=== PATIENT | male | born 1945 | race Hispanic/Latino ===

== ENCOUNTER 2019-11-25 08:39 | Emergency (ER) | payer MEDICARE ==
[~2019-11-25 08:39] MED LIST: ADV250 IH; ASPI81TA40 PO; DILT360C32 PO; FURO20TA4 PO; LOSA100T58 PO
[2019-11-25] MEDS ORDERED: SODIUM CHLORIDE 0.9% 1000ML 1,000 ML IV ONE (08:40)
[2019-11-25 09:54] LABS: APPEARANCE,URINE CLEAR (CLEAR); BILIRUBIN,URINE SMALL (NEGATIVE); COLOR,URINE YELLOW (YELLOW); GLUCOSE, URINE (UA) NEGATIVE (NEGATIVE); KETONES,URINE 5 mg/dL (NEGATIVE); LEUKOCYTE ESTERASE ,URINE TRACE (NEGATIVE); NITRATE,URINE POSITIVE (NEGATIVE); OCCULT BLOOD,URINE NEGATIVE (NEGATIVE); PH,URINE 5.5 (5.0-8.0); PROTEIN,URINE TRACE mg/dL (NEGATIVE)
[2019-11-25 10:29] LABS: BACTERIA,URINE Few /HPF (None Seen); MUCUS,URINE Few LPF (None Seen); RBC,URINE 0-1 /HPF (0-1); SQUAMOUS EPITHELIAL CELL,UR Rare /HPF (0-2)
[2019-11-25 10:57] LABS: BASOPHILS % (AUTO) 1.3 % (0.0-5.0); EOSINOPHILS % (AUTO) 5.9 % (0.0-8.0); HEMATOCRIT 42.1 % (42-54); LYMPHOCYTES % (AUTO) 16.4 % (21.0-51.0); MEAN CORPUSCULAR HEMOGLOBIN 30.5 pg (27.0-33.0); MEAN CORPUSCULAR VOLUME 92.3 fL (79-99); MONOCYTES % (AUTO) 15.1 % (3.0-13.0); NEUTROPHILS % (AUTO) 60.8 % (40.0-77.0); PLATELET COUNT (AUTO) 136 K/uL (130-400); RED BLOOD CELL COUNT(AUTO) 4.56 MIL/uL (4.50-6.20); RED CELL DISTRIBUTION WIDTH 14.5 % (11.0-15.5); WHITE BLOOD COUNT (AUTO) 6.1 K/uL (4.8-10.8)
[2019-11-25 11:08] LABS: CREATININE 0.8 mg/dL (0.5-1.5); POTASSIUM 3.9 mmol/L (3.5-5.1)
[2019-11-25 11:14] LABS: ALBUMIN 3.5 g/dL (3.5-5.0); TOTAL PROTEIN, SERUM 6.7 g/dL (6.0-8.3)
[2019-11-25] MEDS ORDERED: METHYLPREDNISOLONE SOD SUCC 125MG/2ML VIAL ONE (11:40)
[2019-11-25] MEDS ORDERED: DiphenhydrAMINE HCL 50 MG/ML VIAL ONE (11:40)
[2019-11-25] MEDS ORDERED: IOHEXOL 350 MG/ML 100ML INFUS..BTL IV ONE (12:04)
[2019-11-25 12:10] LABS: INR 1.03 (0.85-1.15); PARTIAL THROMBOPLASTIN TIME 27.5 SEC (26.3-35.5); PROTHROMBIN TIME 11.1 SEC (9.6-11.6)
== END 2019-11-25 16:13 | disposition home or self-care (01) ==
LOC: EDH 08:39
DX: I95.1 Orthostatic hypotension (principal); M54.5 Low back pain; I48.20 Chronic atrial fibrillation, unspecified; I10 Essential (primary) hypertension; Z79.01 Long term (current) use of anticoagulants; Z88.0 Allergy status to penicillin; Z87.891 Personal history of nicotine dependence
CPT/HCPCS: 36415; 71046; 74174; 80053; 81001; 82550; 83880; 84484; 85025; 85610; 85730; 93005; 96361; 96374; 96375; 99285; J1200; J2930; J7030; Q9967

== ENCOUNTER 2019-12-09 11:47 | Inpatient (IN) | payer MEDICARE ==
[~2019-12-09] VITALS: Ht 177.8 cm; Wt 117.9 kg
[2019-12-09 12:33] LABS: BASOPHILS % (AUTO) 1.2 % (0.0-5.0); EOSINOPHILS % (AUTO) 2.7 % (0.0-8.0); HEMATOCRIT 41.7 % (42-54); LYMPHOCYTES % (AUTO) 14.6 % (21.0-51.0); MEAN CORPUSCULAR HEMOGLOBIN 30.6 pg (27.0-33.0); MEAN CORPUSCULAR HGB CONC 33.1 g/dL (32.0-36.0); MEAN CORPUSCULAR VOLUME 92.5 fL (79-99); MONOCYTES % (AUTO) 11.5 % (3.0-13.0); NEUTROPHILS % (AUTO) 69.3 % (40.0-77.0); PLATELET COUNT (AUTO) 156 K/uL (130-400); RED BLOOD CELL COUNT(AUTO) 4.51 MIL/uL (4.50-6.20); RED CELL DISTRIBUTION WIDTH 14.6 % (11.0-15.5); WHITE BLOOD COUNT (AUTO) 8.2 K/uL (4.8-10.8)
[2019-12-09 12:46] LABS: POTASSIUM 3.8 mmol/L (3.5-5.1)
[2019-12-09 12:48] LABS: INR 1.04 (0.85-1.15); PROTHROMBIN TIME 11.2 SEC (9.6-11.6)
[2019-12-09 12:51] LABS: ALBUMIN 3.8 g/dL (3.5-5.0); BILIRUBIN,TOTAL 1.1 mg/dL (0.2-1.0); TOTAL PROTEIN, SERUM 7.1 g/dL (6.0-8.3)
[2019-12-09] MEDS ORDERED: FUROSEMIDE 10 MG/ML 4ML VIAL ONE (12:55)
[2019-12-09 13:04] LABS: B-TYPE NATRIURETIC PEPTIDE 67 pg/mL (0-100)
[2019-12-09 13:54] LABS: APPEARANCE,URINE Clear (CLEAR); BILIRUBIN,URINE Negative (NEGATIVE); COLOR,URINE Yellow (YELLOW); GLUCOSE, URINE (UA) Negative (NEGATIVE); KETONES,URINE Negative (NEGATIVE); LEUKOCYTE ESTERASE ,URINE Negative (NEGATIVE); NITRATE,URINE Negative (NEGATIVE); OCCULT BLOOD,URINE Negative (NEGATIVE); PROTEIN,URINE Negative (NEGATIVE)
[2019-12-09] MEDS ORDERED: DIPHENHYDRAMINE HCL 25 MG CAPSULE ONE (13:54)
[2019-12-09] MEDS ORDERED: IOHEXOL-350 75 ML VIAL IV ONE (14:23)
[2019-12-09] MEDS ORDERED: ACETAMINOPHEN 325 MG TAB PO PRN ×2 (16:45)
[2019-12-09] MEDS ORDERED: ONDANSETRON HCL 4 MG/2 ML VIAL IV PRN (16:45)
[2019-12-09] MEDS ORDERED: LACTULOSE 20 GM/30 ML UDCUP PO PRN (16:45)
[2019-12-09] MEDS ORDERED: BUMETANIDE 0.25 MG/ML 10 ML VIAL IV SCH (16:45)
[2019-12-09] MEDS ORDERED: HEPARIN 25000 UNITS/250 ML D5W 250 ML IV SCH (17:15)
[2019-12-09] MEDS ORDERED: BUMETANIDE IV SCH (17:15)
[2019-12-09 20:14] LABS: BASOPHILS % (AUTO) 1.2 % (0.0-5.0); EOSINOPHILS % (AUTO) 2.9 % (0.0-8.0); HEMATOCRIT 39.4 % (42-54); LYMPHOCYTES % (AUTO) 18.8 % (21.0-51.0); MEAN CORPUSCULAR HEMOGLOBIN 30.1 pg (27.0-33.0); MEAN CORPUSCULAR HGB CONC 32.2 g/dL (32.0-36.0); MEAN CORPUSCULAR VOLUME 93.4 fL (79-99); NEUTROPHILS % (AUTO) 63.4 % (40.0-77.0); PLATELET COUNT (AUTO) 144 K/uL (130-400); RED BLOOD CELL COUNT(AUTO) 4.22 MIL/uL (4.50-6.20); RED CELL DISTRIBUTION WIDTH 14.7 % (11.0-15.5); WHITE BLOOD COUNT (AUTO) 7.3 K/uL (4.8-10.8)
[2019-12-09] MEDS ORDERED: ENOXAPARIN SODIUM 100 MG/1 ML SQ ONE (20:34)
[2019-12-09] MEDS ORDERED: ENOXAPARIN SODIUM 30 MG/0.3 ML SQ ONE (20:35)
[2019-12-09 20:42] LABS: HEMOGLOBIN A1C 5.7 % (4.0-6.0)
[2019-12-09] MEDS: FAMOTIDINE/PF 20 MG/2 ML VIAL IV SCH (21:00)
[2019-12-09 21:09] LABS: CREATINE KINASE, TOTAL 20 U/L (21-232); MYOGLOBIN 38 ng/mL (10-92); PHOSPHORUS 2.8 mg/dL (2.5-4.9); TROPONIN I < 0.04 ng/mL (0.00-0.06)
[2019-12-09 21:42] VITALS: BP 130/86
--- NOTE | 2019-12-09 21:45 | NUR ---
PT ARRIVED VIA STRETCHER WITH KILO ADAMES. PT AAOx3. PT DENIES PAIN. PT HAS CANE TO AMBULATE. BED TO LOWEST LEVEL, CALL LIGHT WITHIN REACH.
[2019-12-09 23:26] VITALS: BP 121/80
--- NOTE | 2019-12-09 23:35 | NUR ---
DR ABARCA ASSESSED PT. NEW ORDER TO STOP BUMEX AND LASIX. START HEPARIN DRIP ORDERED.
--- NOTE | 2019-12-10 00:05 | NUR ---
PT STATES HE HAS LIVING WILL AND DNR AT HOME WITH SPOUSE. WILL CALL SPOUSE IN THE MORNING TO BRING DOCUMENTS.
[2019-12-10] MEDS ORDERED: HEPARIN SODIUM 5000UNIT/ML 1ML VIAL ONE (00:12)
[2019-12-10 01:01] LABS: CREATINE KINASE, TOTAL 20 U/L (21-232); MYOGLOBIN 33 ng/mL (10-92); TROPONIN I < 0.04 ng/mL (0.00-0.06)
--- NOTE | 2019-12-10 01:39 | NUR ---
HEPARIN BOLUS GIVEN PER PROTOCOL MD ORDERED OF 9000 UNITS AND HEPARIN DRIP STARTED VERIFIED LABS AND WITNESSED ABOVE MENTION WITH ROSANGELA CALERO
[2019-12-10 03:53] VITALS: BP 140/92
[2019-12-10] MEDS ORDERED: TAMS-1 PO (05:09)
[2019-12-10] MEDS ORDERED: GABA600T10 PO (05:09)
[2019-12-10] MEDS ORDERED: RIVA20TA PO (05:09)
[2019-12-10] MEDS ORDERED: BUME0.5T4 PO (05:09)
[2019-12-10] MEDS ORDERED: GABA800T9 PO (05:09)
[2019-12-10] MEDS ORDERED: DILT120T PO (05:09)
[2019-12-10 06:56] LABS: BASOPHILS % (AUTO) 1.2 % (0.0-5.0); EOSINOPHILS % (AUTO) 3.4 % (0.0-8.0); LYMPHOCYTES % (AUTO) 21.4 % (21.0-51.0); MEAN CORPUSCULAR HEMOGLOBIN 30.7 pg (27.0-33.0); MEAN CORPUSCULAR HGB CONC 32.5 g/dL (32.0-36.0); MEAN CORPUSCULAR VOLUME 94.6 fL (79-99); MONOCYTES % (AUTO) 13.2 % (3.0-13.0); NEUTROPHILS % (AUTO) 60.3 % (40.0-77.0); PLATELET COUNT (AUTO) 143 K/uL (130-400); RED BLOOD CELL COUNT(AUTO) 4.23 MIL/uL (4.50-6.20); RED CELL DISTRIBUTION WIDTH 14.6 % (11.0-15.5); WHITE BLOOD COUNT (AUTO) 7.3 K/uL (4.8-10.8)
[2019-12-10 07:15] LABS: CREATINE KINASE, TOTAL 16 U/L (21-232); MYOGLOBIN 36 ng/mL (10-92); TROPONIN I < 0.04 ng/mL (0.00-0.06)
[2019-12-10 07:20] LABS: INR 1.07 (0.85-1.15); PROTHROMBIN TIME 11.5 SEC (9.6-11.6)
[2019-12-10 07:41] VITALS: BP 122/80
[2019-12-10 07:50] LABS: PARTIAL THROMBOPLASTIN TIME > 120.0 SEC (26.3-35.5)
[2019-12-10] MEDS: FAMOTIDINE/PF 20 MG/2 ML VIAL IV SCH ×2 (08:39→20:57)
[2019-12-10] MEDS ORDERED: PHARMACY COMMUNICATION MISC SCH (09:00)
[2019-12-10 10:53] VITALS: BP 128/86
[2019-12-10] MEDS ORDERED: GADODIAMIDE 10 MMOL/20 ML VIAL IV ONE (12:35)
--- NOTE | 2019-12-10 13:02 | NUR ---
DCP CM met with pt discussed dc plans. Pt is independent prior to admission, lives at home with spouse. Pt has a cane he uses to ambulate. Denies any other equipments/services. Feels safe to go back home, still drives, spouse able to assist with transportation and needs as necessary. DC plan to home once stable. CM to cont to follow up. Addendum: 12/10/19 at 1303 by LEONARD DE LA CRUZ LVN CM Amended: Links added.
[2019-12-10 15:19] LABS: INR 1.04 (0.85-1.15); PROTHROMBIN TIME 11.2 SEC (9.6-11.6)
[2019-12-10 15:25] LABS: PARTIAL THROMBOPLASTIN TIME > 120.0 SEC (26.3-35.5)
[2019-12-10 16:00] VITALS: BP 135/94
[2019-12-10] MEDS: ENOXAPARIN SODIUM 120 MG/0.8ML SQ SCH (18:11)
[2019-12-10 19:23] VITALS: BP 120/80
--- NOTE | 2019-12-10 20:04 | NUR ---
DR. TAPIA PAGED AWARE OF PT'S STATUS AND PATIENT CURRENT MEDICATIONS STATED HE WILL SEE PATIENT TOMORROW AM
[2019-12-10] MEDS ORDERED: GABAPENTIN 300 MG CAPSULE ONE (22:19)
--- NOTE | 2019-12-10 22:20 | NUR ---
pt verbalizes code status of DNR out of hospital DNR on file dr. alvarenga aware
--- NOTE | 2019-12-10 22:21 | NUR ---
gabapentin 900 mg given at this time as per dr. melchor
[2019-12-10 23:00] VITALS: BP 134/83
[2019-12-11 03:34] VITALS: BP 132/86
[2019-12-11 04:10] LABS: BASOPHILS % (AUTO) 1.6 % (0.0-5.0); EOSINOPHILS % (AUTO) 3.9 % (0.0-8.0); HEMATOCRIT 40.1 % (42-54); LYMPHOCYTES % (AUTO) 22.2 % (21.0-51.0); MEAN CORPUSCULAR HEMOGLOBIN 30.3 pg (27.0-33.0); MEAN CORPUSCULAR HGB CONC 32.2 g/dL (32.0-36.0); MEAN CORPUSCULAR VOLUME 94.1 fL (79-99); MONOCYTES % (AUTO) 13.9 % (3.0-13.0); NEUTROPHILS % (AUTO) 57.9 % (40.0-77.0); PLATELET COUNT (AUTO) 161 K/uL (130-400); RED BLOOD CELL COUNT(AUTO) 4.26 MIL/uL (4.50-6.20); RED CELL DISTRIBUTION WIDTH 14.7 % (11.0-15.5); WHITE BLOOD COUNT (AUTO) 6.2 K/uL (4.8-10.8)
[2019-12-11 04:37] LABS: CARBON DIOXIDE 33 mmol/L (21-32); CHLORIDE 100 mmol/L (101-111); CREATININE 0.8 mg/dL (0.5-1.5); GLOMERULAR FILTR. RATE CALC 100 mL/min (>60); GLUCOSE,RANDOM 105 mg/dL (70-105); PHOSPHORUS 3.3 mg/dL (2.5-4.9); POTASSIUM 3.9 mmol/L (3.5-5.1); SODIUM SERUM 137 mmol/L (136-145); UREA NITROGEN, BLOOD 10 mg/dL (7-18)
[2019-12-11 05:45] LABS: ERYTHROCYTE SEDIMENTATION RATE 5 MM/HR (0-20)
[2019-12-11] MEDS: ENOXAPARIN SODIUM 120 MG/0.8ML SQ SCH ×2 (06:44→18:36)
[2019-12-11 07:54] VITALS: BP 118/79
[2019-12-11] MEDS: GABAPENTIN 300 MG CAPSULE PO SCH ×2 (09:23→20:33)
[2019-12-11] MEDS: FAMOTIDINE/PF 20 MG/2 ML VIAL IV SCH ×2 (09:23→20:32)
[2019-12-11 11:41] VITALS: BP 128/88
[2019-12-11 15:37] VITALS: BP 148/78
[2019-12-11 20:18] VITALS: BP 141/77
--- NOTE | 2019-12-11 21:00 | NUR ---
PT ABLE TO AMBULATE. PITTING EDEMA +4. NO DISTRESS NOTED. ABLE TO TAKE MEDICATIONS WELL. STATES NO SOB. PAIN.
[2019-12-12] VITALS (7 sets, daily range): BP systolic 111–130; BP diastolic 63–94
[2019-12-12] MEDS: ENOXAPARIN SODIUM 120 MG/0.8ML SQ SCH ×2 (06:39→18:30)
[2019-12-12] MEDS: GABAPENTIN 300 MG CAPSULE PO SCH ×2 (12:36→21:11)
[2019-12-12] MEDS: FAMOTIDINE/PF 20 MG/2 ML VIAL IV SCH ×2 (12:37→21:10)
[2019-12-12] MEDS: BUMETANIDE 1 MG TAB PO SCH ×2 (12:49→21:11)
[2019-12-12] MEDS: MULTIVITAMIN TABLET PO SCH (12:49)
[2019-12-12] MEDS: DILTIAZEM HCL 60 MG TABLET PO SCH (12:50)
[2019-12-12] MEDS: POTASSIUM CHLORIDE 10 MEQ/TAB.SA PO SCH (12:51)
[2019-12-13 04:06] VITALS: BP 124/88
[2019-12-13 04:33] LABS: BASOPHILS % (AUTO) 1.5 % (0.0-5.0); EOSINOPHILS % (AUTO) 4.7 % (0.0-8.0); HEMATOCRIT 39.6 % (42-54); LYMPHOCYTES % (AUTO) 25.3 % (21.0-51.0); MEAN CORPUSCULAR HEMOGLOBIN 30.8 pg (27.0-33.0); MEAN CORPUSCULAR HGB CONC 33.1 g/dL (32.0-36.0); MEAN CORPUSCULAR VOLUME 93.2 fL (79-99); MONOCYTES % (AUTO) 16.2 % (3.0-13.0); NEUTROPHILS % (AUTO) 51.7 % (40.0-77.0); PLATELET COUNT (AUTO) 183 K/uL (130-400); RED BLOOD CELL COUNT(AUTO) 4.25 MIL/uL (4.50-6.20); RED CELL DISTRIBUTION WIDTH 14.5 % (11.0-15.5); WHITE BLOOD COUNT (AUTO) 5.4 K/uL (4.8-10.8)
[2019-12-13] MEDS: ENOXAPARIN SODIUM 120 MG/0.8ML SQ SCH ×2 (06:40→18:09)
[2019-12-13 08:05] VITALS: BP 132/82
[2019-12-13] MEDS: POTASSIUM CHLORIDE 10 MEQ/TAB.SA PO SCH (08:54)
[2019-12-13] MEDS: DILTIAZEM HCL 60 MG TABLET PO SCH (08:55)
[2019-12-13] MEDS: MULTIVITAMIN TABLET PO SCH (08:55)
[2019-12-13] MEDS: BUMETANIDE 1 MG TAB PO SCH ×2 (08:55→20:57)
[2019-12-13] MEDS: GABAPENTIN 300 MG CAPSULE PO SCH ×2 (08:56→20:57)
[2019-12-13] MEDS: FAMOTIDINE/PF 20 MG/2 ML VIAL IV SCH ×2 (09:07→20:57)
[2019-12-13 11:43] VITALS: BP 123/76
[2019-12-13 15:38] VITALS: BP 116/73
[2019-12-13 19:42] VITALS: BP 134/95
--- NOTE | 2019-12-13 23:00 | NUR ---
PT EDEMA TO LE HAS IMPROVED FROM 4+ PITTING TO 1+ WITH MINIMAL PITTING. TEDS IN PLACE. NO CONCERNS AT THIS TIME. NO DISTRESS NOTED. PT ABLE TO AMBULATE. POSSIBLE DC FOR THE AM.
[2019-12-13 23:35] VITALS: BP 135/74
[2019-12-14 03:51] VITALS: BP 127/89
[2019-12-14 03:53] LABS: BASOPHILS % (AUTO) 1.4 % (0.0-5.0); EOSINOPHILS % (AUTO) 6.4 % (0.0-8.0); HEMATOCRIT 40.3 % (42-54); LYMPHOCYTES % (AUTO) 27.7 % (21.0-51.0); MEAN CORPUSCULAR HEMOGLOBIN 30.9 pg (27.0-33.0); MEAN CORPUSCULAR HGB CONC 32.3 g/dL (32.0-36.0); MEAN CORPUSCULAR VOLUME 95.7 fL (79-99); MONOCYTES % (AUTO) 15.1 % (3.0-13.0); PLATELET COUNT (AUTO) 184 K/uL (130-400); RED BLOOD CELL COUNT(AUTO) 4.21 MIL/uL (4.50-6.20); RED CELL DISTRIBUTION WIDTH 14.3 % (11.0-15.5)
[2019-12-14 04:22] LABS: BILIRUBIN,TOTAL 0.7 mg/dL (0.2-1.0); POTASSIUM 3.3 mmol/L (3.5-5.1); TOTAL PROTEIN, SERUM 6.4 g/dL (6.0-8.3)
[2019-12-14] MEDS: ENOXAPARIN SODIUM 120 MG/0.8ML SQ SCH ×2 (05:02→17:32)
[2019-12-14 07:40] VITALS: BP 131/89
--- NOTE | 2019-12-14 07:45 | NUR ---
ASSESSMENT ENCOUNTERED PT SITTING UP IN CHAIR WITH FEET ELEVATED, A&OX3, CALM COOPERATIVE AND DOES NOT APPEAR TO BE IN ANY DISTRESS NOR ANY NEURO DEFICITS PRESENT. PT DENIES PAIN, SOB, NAUSEA. PT IS ABLE TO TOLERATE FOODS, FLUIDS AND MEDICATION WITH NO THROAT CLEARING OR COUGH. PT IS AMBULATORY, GAIT SLOW BUT STEADY WITH WALKER. CALL LIGHT WITHIN REACH.
[2019-12-14] MEDS: MULTIVITAMIN TABLET PO SCH (09:48)
[2019-12-14] MEDS: POTASSIUM CHLORIDE 10 MEQ/TAB.SA PO SCH (09:49)
[2019-12-14] MEDS: BUMETANIDE 1 MG TAB PO SCH ×2 (09:49→17:33)
[2019-12-14] MEDS: DILTIAZEM HCL 60 MG TABLET PO SCH (09:49)
[2019-12-14] MEDS: FAMOTIDINE/PF 20 MG/2 ML VIAL IV SCH (09:50)
[2019-12-14] MEDS: GABAPENTIN 300 MG CAPSULE PO SCH (09:50)
[2019-12-14 11:31] VITALS: BP 129/85
--- NOTE | 2019-12-14 14:32 | NUR ---
CM Note: Lovenox $24 copay CM spoke to Ronald barragan/[facility], pt's preferred pharmacy, gave quote $24/month for lovenox 1.5mg/kg. Script called in for Dr Conner. made aware of copay, agreeable w/pricing. Nurse to teach pt how to administer lovenox. Primary nurse aware. CM to cont to follow up.
[2019-12-14] MEDS ORDERED: BUME1TAB7 PO (14:37)
[2019-12-14] MEDS ORDERED: DILT-36 PO (14:37)
[2019-12-14] MEDS ORDERED: ENOX120D SQ (14:37)
[2019-12-14] MEDS ORDERED: POTA-9 PO (14:37)
--- NOTE | 2019-12-14 17:30 | NUR ---
DISCHARGE INSTRUCTIONS GIVEN, PIV REMOVED AND INTACT, DISCHARGED HOME TO FAMILY VEHICLE VIA WHEELCHAIR.
== END 2019-12-14 17:34 | disposition home or self-care (01) | DRG 300 ==
LOC: EDH 11:47 → EDHIP 16:33 → 4BH 20:24
PROVIDERS: ADMIT Internal Medicine; ATTEND Internal Medicine
DX: I82.411 Acute embolism and thrombosis of right femoral vein (principal); E87.1 Hypo-osmolality and hyponatremia; I48.19 Other persistent atrial fibrillation; D68.59 Other primary thrombophilia; J94.8 Other specified pleural conditions; I82.441 Acute embolism and thrombosis of right tibial vein; I82.432 Acute embolism and thrombosis of left popliteal vein; I10 Essential (primary) hypertension; E87.8 Other disorders of electrolyte and fluid balance, not elsewhere classified; Z96.641 Presence of right artificial hip joint; Z77.090 Contact with and (suspected) exposure to asbestos; I87.2 Venous insufficiency (chronic) (peripheral); N40.0 Benign prostatic hyperplasia without lower urinary tract symptoms; E03.9 Hypothyroidism, unspecified; E66.9 Obesity, unspecified; I27.20 Pulmonary hypertension, unspecified; R76.8 Other specified abnormal immunological findings in serum; Z68.37 Body mass index [BMI] 37.0-37.9, adult; Z98.84 Bariatric surgery status; Z87.891 Personal history of nicotine dependence; Z95.828 Presence of other vascular implants and grafts; Z79.01 Long term (current) use of anticoagulants; Z88.0 Allergy status to penicillin; Z88.8 Allergy status to other drugs, medicaments and biological substances; Z83.3 Family history of diabetes mellitus; Z82.49 Family history of ischemic heart disease and other diseases of the circulatory system
CPT/HCPCS: 36415; 71045; 71275; 78582; 80048; 80053; 81003; 81241; 82550; 83036; 83090; 83735; 83874; 83880; 84100; 84145; 84443; 84484; 85025; 85210; 85378; 85610; 85651; 85730; 86038; 86147; 86160; 86215; 93005; 93306; 93356; 93970; A9540; A9558; A9579; G0378; J1644; J1650; J1940; J3490; Q0163; Q9967

== ENCOUNTER 2020-04-26 16:43 | Emergency (ER) | payer MEDICARE ==
[~2020-04-26 16:43] MED LIST changes: -ADV250 IH; -ASPI81TA40 PO; +BUME0.5T4 PO; +BUME1TAB7 PO; +DILT-36 PO; -DILT360C32 PO; +ENOX120D SQ; -FURO20TA4 PO; +GABA600T10 PO; +GABA800T9 PO; -LOSA100T58 PO; +POTA-9 PO; +TAMS-1 PO
[2020-04-26 17:14] LABS: BASOPHILS % (AUTO) 1.2 % (0.0-5.0); EOSINOPHILS % (AUTO) 3.4 % (0.0-8.0); HEMATOCRIT 43.1 % (42-54); LYMPHOCYTES % (AUTO) 17.8 % (21.0-51.0); MEAN CORPUSCULAR HEMOGLOBIN 29.6 pg (27.0-33.0); MEAN CORPUSCULAR HGB CONC 32.9 g/dL (32.0-36.0); NEUTROPHILS % (AUTO) 62.2 % (40.0-77.0); PLATELET COUNT (AUTO) 241 K/uL (130-400); RED BLOOD CELL COUNT(AUTO) 4.79 MIL/uL (4.50-6.20); RED CELL DISTRIBUTION WIDTH 14.5 % (11.0-15.5); WHITE BLOOD COUNT (AUTO) 7.6 K/uL (4.8-10.8)
[2020-04-26 17:27] LABS: CREATININE 0.9 mg/dL (0.5-1.5)
[2020-04-26 17:29] LABS: INR 2.07 (0.85-1.15); PARTIAL THROMBOPLASTIN TIME 33.6 SEC (26.3-35.5); PROTHROMBIN TIME 21.7 SEC (9.6-11.6)
[2020-04-26 17:34] LABS: ALBUMIN 3.5 g/dL (3.5-5.0); BILIRUBIN,TOTAL 0.6 mg/dL (0.2-1.0); TOTAL PROTEIN, SERUM 7.1 g/dL (6.0-8.3)
[2020-04-26] MEDS ORDERED: ACETAMINOPHEN EXTRA STRENGTH 500 MG TABLET ONE (17:48)
[2020-04-26 18:22] LABS: APPEARANCE,URINE Clear (CLEAR); BILIRUBIN,URINE Negative (NEGATIVE); COLOR,URINE Yellow (YELLOW); GLUCOSE, URINE (UA) Negative (NEGATIVE); KETONES,URINE Negative (NEGATIVE); LEUKOCYTE ESTERASE ,URINE Trace (NEGATIVE); NITRATE,URINE Negative (NEGATIVE); OCCULT BLOOD,URINE Negative (NEGATIVE); PROTEIN,URINE Negative (NEGATIVE)
[2020-04-26 18:30] LABS: RBC,URINE 0-1 /HPF (0-1)
[2020-04-26 18:31] LABS: BACTERIA,URINE Rare /HPF (None Seen); SQUAMOUS EPITHELIAL CELL,UR Few /HPF (0-2)
[2020-04-26 18:32] LABS: MUCUS,URINE Rare LPF (None Seen)
== END 2020-04-26 19:27 | disposition home or self-care (01) ==
LOC: EDH 16:43
DX: S81.801A Unspecified open wound, right lower leg, initial encounter (principal); L97.219 Non-pressure chronic ulcer of right calf with unspecified severity; I10 Essential (primary) hypertension; Z91.041 Radiographic dye allergy status; Z88.0 Allergy status to penicillin; Z98.890 Other specified postprocedural states; X58.XXXA Exposure to other specified factors, initial encounter; Y93.89 Activity, other specified; Y92.89 Other specified places as the place of occurrence of the external cause; Y99.8 Other external cause status
CPT/HCPCS: 36415; 80053; 81001; 82550; 83605; 83880; 84484; 85025; 85610; 85730; 93005; 93970; 93971

== ENCOUNTER → 2022-07-24 | Outpatient (CLI) | payer MEDICARE, OTHER ==
[~2022-07-24] MED LIST changes: +POTA-200 PO; -POTA-9 PO
== END | disposition home or self-care (01) ==
LOC: RAH 13:51
DX: I48.0 Paroxysmal atrial fibrillation (principal); G63 Polyneuropathy in diseases classified elsewhere; E66.01 Morbid (severe) obesity due to excess calories
CPT/HCPCS: 73620

== ENCOUNTER 2022-09-11 01:12 | Emergency (ER) | payer OTHER ==
[~2022-09-11] VITALS: Ht 177.8 cm; Wt 117.9 kg
[2022-09-11 01:26] LABS: BASOPHILS % (AUTO) 1.8 % (0.0-5.0); EOSINOPHILS % (AUTO) 8.5 % (0.0-8.0); LYMPHOCYTES % (AUTO) 24.7 % (21.0-51.0); MEAN CORPUSCULAR HGB CONC 31.4 g/dL (32.0-36.0); MEAN CORPUSCULAR VOLUME 89.1 fL (79-99); MONOCYTES % (AUTO) 11.4 % (3.0-13.0); NEUTROPHILS % (AUTO) 53.2 % (40.0-77.0); PLATELET COUNT (AUTO) 217 K/uL (130-400); RED BLOOD CELL COUNT(AUTO) 4.04 MIL/uL (4.50-6.20); RED CELL DISTRIBUTION WIDTH 15.6 % (11.0-15.5); WHITE BLOOD COUNT (AUTO) 5.5 K/uL (4.8-10.8)
[2022-09-11 01:44] LABS: ALBUMIN 3.1 g/dL (3.5-5.0); CREATININE 0.8 mg/dL (0.5-1.5); TOTAL PROTEIN, SERUM 5.9 g/dL (6.0-8.3)
[2022-09-11 02:04] LABS: INR 2.75 (0.85-1.15); PROTHROMBIN TIME 28.3 SEC (9.6-11.6)
[2022-09-11 02:22] LABS: PARTIAL THROMBOPLASTIN TIME 36.2 SEC (26.3-35.5)
[2022-09-11] MEDS ORDERED: POTASSIUM CHLORIDE 10MEQ/100ML 100 ML IV ONE (02:44)
[2022-09-11] MEDS ORDERED: LISI5TAB21 PO (04:16)
[2022-09-11] MEDS ORDERED: GABA800T9 PO (04:17)
[2022-09-11 04:18] LABS: APPEARANCE,URINE CLEAR (CLEAR); BILIRUBIN,URINE NEGATIVE (NEGATIVE); COLOR,URINE YELLOW (YELLOW); GLUCOSE, URINE (UA) NEGATIVE (NEGATIVE); KETONES,URINE NEGATIVE (NEGATIVE); LEUKOCYTE ESTERASE ,URINE NEGATIVE Leu/uL (NEGATIVE); NITRATE,URINE NEGATIVE (NEGATIVE); OCCULT BLOOD,URINE NEGATIVE (NEGATIVE); PH,URINE 5.5 (5.0-8.0); PROTEIN,URINE 20 mg/dL (NEGATIVE); UROBILINOGEN,URINE 0.2 mg/dL (0.2-1.0)
[2022-09-11] MEDS ORDERED: WARF-57 PO (04:18)
[2022-09-11] MEDS ORDERED: ONDANSETRON 4MG INJ IVP ONE (05:30)
[2022-09-11] MEDS ORDERED: MORPHINE 4 MG SYG IVP ONE (05:30)
[2022-09-11 06:13] VITALS: BP 129/89
== END 2022-09-11 06:39 | disposition short-term general hospital (02) ==
LOC: EDH 01:12
DX: S14.109A Unspecified injury at unspecified level of cervical spinal cord, initial encounter (principal); I48.91 Unspecified atrial fibrillation; I11.0 Hypertensive heart disease with heart failure; I50.9 Heart failure, unspecified; Z20.822 Contact with and (suspected) exposure to COVID-19; Z88.0 Allergy status to penicillin; Z88.8 Allergy status to other drugs, medicaments and biological substances; Z79.01 Long term (current) use of anticoagulants; I95.9 Hypotension, unspecified; Z79.899 Other long term (current) drug therapy; W18.30XA Fall on same level, unspecified, initial encounter; Y93.89 Activity, other specified; Y92.89 Other specified places as the place of occurrence of the external cause; Y99.8 Other external cause status
CPT/HCPCS: 99285; 80053; 85025; 85610; 85730; 81003; 36415; 87635; 70450; 72125; 72131; 72128; 96374; 96361; 96375; 93005; C9803; J2405; J2270

== ENCOUNTER 2023-04-26 17:17 | Emergency (ER) | payer OTHER ==
[~2023-04-26] VITALS: Ht 180.3 cm; Wt 99.8 kg
[~2023-04-26 17:17] MED LIST changes: +BACL10TA PO; -BUME0.5T4 PO; -BUME1TAB7 PO; +CALC-190 PO; +CYAN100T45 PO; +DOCU283E6 RC; -ENOX120D SQ; +FOLI1 PO; +FURO20TA4 PO; -GABA600T10 PO; -GABA800T9 PO; +KETO10DR3 OP; +LISI5TAB21 PO; +LOPE2TAB26 PO; +MAGN400T40 PO; +MULTIVITAMIN PO; -POTA-200 PO; +POTA-364 PO; +PSYL1PAC11 PO; +THIA100T78 PO; +WARF-57 PO
[2023-04-26 18:21] LABS: ADD UA MICROSCOPIC YES; APPEARANCE,URINE CLOUDY (CLEAR); BILIRUBIN,URINE NEGATIVE (NEGATIVE); COLOR,URINE LIGHT-YELLOW (YELLOW); GLUCOSE, URINE (UA) NEGATIVE (NEGATIVE); KETONES,URINE NEGATIVE (NEGATIVE); LEUKOCYTE ESTERASE ,URINE 500 Leu/uL (NEGATIVE); NITRATE,URINE 2+ (NEGATIVE); PROTEIN,URINE NEGATIVE (NEGATIVE); UROBILINOGEN,URINE 0.2 mg/dL (0.2-1.0)
[2023-04-26 18:24] LABS: BACTERIA,URINE RARE /HPF (None Seen); MUCUS,URINE RARE LPF (None Seen); OTHER CASTS, URINE 1 /LPF (None Seen); WBC,URINE TNTC /HPF (0-1)
[2023-04-26 19:21] VITALS: BP 112/69; PULSE 60; RESP 16; O2SAT 97
[2023-04-26 19:30] LABS: APPEARANCE,URINE CLEAR (CLEAR); BILIRUBIN,URINE NEGATIVE (NEGATIVE); COLOR,URINE LIGHT-YELLOW (YELLOW); GLUCOSE, URINE (UA) NEGATIVE (NEGATIVE); KETONES,URINE NEGATIVE (NEGATIVE); LEUKOCYTE ESTERASE ,URINE 500 Leu/uL (NEGATIVE); NITRATE,URINE NEGATIVE (NEGATIVE); OCCULT BLOOD,URINE SMALL (NEGATIVE); PH,URINE 5.5 (5.0-8.0); PROTEIN,URINE NEGATIVE (NEGATIVE); UROBILINOGEN,URINE 0.2 mg/dL (0.2-1.0)
[2023-04-26 19:34] LABS: ADD UA MICROSCOPIC YES
[2023-04-26 19:35] LABS: BACTERIA,URINE RARE /HPF (None Seen); MUCUS,URINE RARE LPF (None Seen); SQUAMOUS EPITHELIAL CELL,UR RARE /HPF (0-2); WBC,URINE 51-100 /HPF (0-1)
== END 2023-04-26 20:10 | disposition home or self-care (01) ==
LOC: EDH 17:17
DX: N39.0 Urinary tract infection, site not specified (principal); I48.91 Unspecified atrial fibrillation; Z79.899 Other long term (current) drug therapy; Z98.890 Other specified postprocedural states; Z90.49 Acquired absence of other specified parts of digestive tract; Z88.0 Allergy status to penicillin; Z91.040 Latex allergy status
CPT/HCPCS: 81001; 87077; 87088; 87186

== ENCOUNTER 2023-05-04 20:26 | Inpatient (IN) | payer OTHER ==
[~2023-05-04] VITALS: Ht 180.3 cm; Wt 100.3 kg
[2023-05-04 20:52] LABS: HEMATOCRIT 28.9 % (42-54); MEAN CORPUSCULAR HEMOGLOBIN 29.2 pg (27.0-33.0); MEAN CORPUSCULAR HGB CONC 32.5 g/dL (32.0-36.0); MEAN CORPUSCULAR VOLUME 89.8 fL (79-99); PLATELET COUNT (AUTO) 190 K/uL (130-400); RED BLOOD CELL COUNT(AUTO) 3.22 MIL/uL (4.50-6.20); RED CELL DISTRIBUTION WIDTH 14.6 % (11.0-15.5); WHITE BLOOD COUNT (AUTO) 8.1 K/uL (4.8-10.8)
[2023-05-04] MEDS ORDERED: CEFEPIME HCL 2 GM VIAL IVPB STA (20:56)
[2023-05-04] MEDS ORDERED: VANCOMYCIN KIT 1 GM/250 ML IV.KIT IV ONE (21:00)
[2023-05-04 21:26] LABS: EOSINOPHILS % (MANUAL) 10 % (1-6); LYMPHOCYTES % (MANUAL) 14 % (22-44); MAN.DIFF COMMENT-IMPRESSION MANUAL DIFFERENTIAL; MONOCYTES % (MANUAL) 5 % (2-9); SEGMENTED NEUTROPHILS % 71 % (40-70); TOTAL CELLS COUNTED 100; WBC MORPHOLOGY SMUDGE CELLS 1+
[2023-05-04 21:27] LABS: PLATELET MORPHOLOGY COMMENT ADEQUATE
[2023-05-04 21:41] LABS: ALBUMIN 1.9 g/dL (3.5-5.0); BILIRUBIN,TOTAL 0.2 mg/dL (0.2-1.0); CREATININE 0.5 mg/dL (0.5-1.5); TOTAL PROTEIN, SERUM 3.7 g/dL (6.0-8.3)
[2023-05-04 21:42] LABS: POTASSIUM 2.7 mmol/L (3.5-5.1)
[2023-05-04 21:51] LABS: APPEARANCE,URINE TURBID (CLEAR); BILIRUBIN,URINE NEGATIVE (NEGATIVE); COLOR,URINE YELLOW (YELLOW); GLUCOSE, URINE (UA) NEGATIVE (NEGATIVE); KETONES,URINE NEGATIVE (NEGATIVE); LEUKOCYTE ESTERASE ,URINE 500 Leu/uL (NEGATIVE); NITRATE,URINE NEGATIVE (NEGATIVE); OCCULT BLOOD,URINE LARGE (NEGATIVE); PH,URINE 5.5 (5.0-8.0); PROTEIN,URINE 100 mg/dL (NEGATIVE)
[2023-05-04 21:52] LABS: ADD UA MICROSCOPIC YES
[2023-05-04 21:53] LABS: BACTERIA,URINE MOD /HPF (None Seen); MUCUS,URINE MOD LPF (None Seen); RBC,URINE TNTC /HPF (0-1); WBC CLUMP MANY /HPF (0-1); WBC,URINE TNTC /HPF (0-1); YEAST,URINE BUDDING RARE /HPF (None Seen)
[2023-05-04] MEDS ORDERED: POTASSIUM CHLORIDE 20MEQ/100ML 100 ML IV ONE (22:33)
[2023-05-04] MEDS ORDERED: MAGNESIUM 2GM PREMIX 50ML 50 ML IV SCH (23:00)
[2023-05-04] MEDS ORDERED: POTASSIUM BICARB/CIT AC 25 MEQ TABLET.EFF PO ONE (23:00)
[2023-05-04] MEDS ORDERED: POTASSIUM CHLORIDE 20MEQ/100ML 100 ML IV SCH (23:00)
[2023-05-05] MEDS ORDERED: POTASSIUM CHLORIDE 20MEQ/100ML 100 ML IV PRN (01:30)
[2023-05-05] MEDS ORDERED: ONDANSETRON 4MG INJ IV PRN (01:30)
[2023-05-05] MEDS: CEFEPIME HCL 1 GM VIAL IVPB SCH ×3 (01:30→17:28)
[2023-05-05] MEDS: CACL 1GM SYG IVP SCH ×2 (02:00→08:11)
[2023-05-05] MEDS ORDERED: 0.9%NACL 100ML IV ONE (02:00)
[2023-05-05] MEDS: 0.9%NACL 1000ML 1,000 ML IV SCH ×2 (03:15→17:31)
[2023-05-05 07:56] LABS: BASOPHILS # (AUTO) 0.11 K/uL (0.00-0.20); BASOPHILS % (AUTO) 1.1 % (0.0-5.0); EOSINOPHILS # (AUTO) 0.82 K/uL (0.00-0.70); EOSINOPHILS % (AUTO) 8.2 % (0.0-8.0); HEMATOCRIT 39.9 % (42-54); IMMATURE GRANULOCYTE ABSOLUTE 0.09 K/uL (0-1); LYMPHOCYTES # (AUTO) 1.3 K/uL (1.0-4.8); LYMPHOCYTES % (AUTO) 13.4 % (21.0-51.0); MEAN CORPUSCULAR HEMOGLOBIN 29.9 pg (27.0-33.0); MEAN CORPUSCULAR HGB CONC 33.6 g/dL (32.0-36.0); MEAN CORPUSCULAR VOLUME 89.1 fL (79-99); MONOCYTES # (AUTO) 0.9 K/uL (0.1-1.0); MONOCYTES % (AUTO) 9.2 % (3.0-13.0); NEUTROPHILS # (AUTO) 6.8 K/uL (1.8-7.7); NEUTROPHILS % (AUTO) 67.2 % (40.0-77.0); PLATELET COUNT (AUTO) 218 K/uL (130-400); RED BLOOD CELL COUNT(AUTO) 4.48 MIL/uL (4.50-6.20); RED CELL DISTRIBUTION WIDTH 14.6 % (11.0-15.5)
[2023-05-05 08:00] VITALS: BP 119/69; PULSE 64; RESP 17
[2023-05-05 08:17] LABS: ALBUMIN 2.7 g/dL (3.5-5.0); BILIRUBIN,TOTAL 0.7 mg/dL (0.2-1.0); CREATININE 0.6 mg/dL (0.5-1.5); POTASSIUM 4.2 mmol/L (3.5-5.1); THYROID STIMULATING HORMONE 2.93 uIU/mL (0.36-3.74)
[2023-05-05] MEDS: FAMOTIDINE 20MG VIAL IV SCH ×2 (08:37→20:48)
[2023-05-05] MEDS ORDERED: TAMSULOSIN HCL 0.4 MG CAP.ER.24H PO ONE (09:30)
[2023-05-05 12:00] VITALS: BP 102/61; PULSE 80; RESP 17
[2023-05-05] MEDS ORDERED: BACLOFEN 10 MG TABLET PO PRN (12:00)
[2023-05-05] MEDS ORDERED: KETOTIFEN FUMARATE OP SCH (12:00)
[2023-05-05] MEDS ORDERED: DOCUSATE SODIUM 283 MG PR PRN (12:30)
[2023-05-05 13:36] LABS: PARTIAL THROMBOPLASTIN TIME 64.6 SEC (26.3-35.5)
[2023-05-05 13:46] LABS: INR > 8.00 (0.85-1.15); PROTHROMBIN TIME 85.3 SEC (9.6-11.6)
[2023-05-05 15:53] VITALS: BP 124/71; PULSE 69; RESP 17
[2023-05-05 20:00] VITALS: BP 99/60; PULSE 77; RESP 17; O2SAT 97
[2023-05-05] MEDS: BACLOFEN 10 MG TABLET PO PRN (20:48)
[2023-05-05] MEDS: CA 600MG+VIT D 400 UNIT TAB 1 TAB TABLET PO SCH (20:48)
[2023-05-05] MEDS ORDERED: MULTIVITAMIN PO SCH (21:00)
[2023-05-05] MEDS ORDERED: PHYTONADIONE 10 MG/1 ML AMP SQ ONE (23:30)
[2023-05-06] VITALS (8 sets, daily range): BP systolic 97–124; BP diastolic 67–87; PULSE 60–81; RESP 16–20; O2SAT 96
[2023-05-06] MEDS: CEFEPIME HCL 1 GM VIAL IVPB SCH ×3 (00:38→18:33)
[2023-05-06 04:57] LABS: HEMATOCRIT 38.5 % (42-54); MEAN CORPUSCULAR HEMOGLOBIN 28.6 pg (27.0-33.0); MEAN CORPUSCULAR HGB CONC 31.7 g/dL (32.0-36.0); MEAN CORPUSCULAR VOLUME 90.4 fL (79-99); RED BLOOD CELL COUNT(AUTO) 4.26 MIL/uL (4.50-6.20); RED CELL DISTRIBUTION WIDTH 14.9 % (11.0-15.5); WHITE BLOOD COUNT (AUTO) 7.4 K/uL (4.8-10.8)
[2023-05-06 05:23] LABS: INR 5.49 (0.85-1.15); PROTHROMBIN TIME 54.7 SEC (9.6-11.6)
[2023-05-06 05:36] LABS: ALBUMIN 2.5 g/dL (3.5-5.0); BILIRUBIN,TOTAL 0.7 mg/dL (0.2-1.0); CREATININE 0.7 mg/dL (0.5-1.5); MAGNESIUM 1.7 mg/dL (1.80-2.40); POTASSIUM 3.8 mmol/L (3.5-5.1); TOTAL PROTEIN, SERUM 5.5 g/dL (6.0-8.3)
[2023-05-06] MEDS: MAGNESIUM 2GM PREMIX 50ML 50 ML IV PRN (05:42)
[2023-05-06] MEDS ORDERED: NON-FORMULARY MEDICATION 1 EACH (Magnesium Oxide (Magnesium) 400 MG) PO SCH (09:00)
[2023-05-06] MEDS ORDERED: LOPERAMIDE HCL 2 MG PO SCH (09:00)
[2023-05-06] MEDS ORDERED: WARFARIN SODIUM 5 MG TAB PO SCH (09:00)
[2023-05-06] MEDS: [UNRECOGNIZED DRUG - OTHER] PO SCH (09:00)
[2023-05-06] MEDS: PSYLLIUM HUSK 3.4 GM PO SCH (09:00)
[2023-05-06] MEDS ORDERED: TAMSULOSIN HCL 0.4 MG CAP.ER.24H PO SCH (09:00)
[2023-05-06] MEDS: FAMOTIDINE 20MG VIAL IV SCH ×2 (09:26→20:30)
[2023-05-06] MEDS: MAGNESIUM OXIDE 400 MG TABLET PO SCH (09:26)
[2023-05-06] MEDS: KCL 20 MEQ ERTAB PO SCH (09:26)
[2023-05-06] MEDS: CA 600MG+VIT D 400 UNIT TAB 1 TAB TABLET PO SCH ×2 (09:27→20:30)
[2023-05-06] MEDS: CYANOCOBALAMIN (VITAMIN B-12) 100 MCG TABLET PO SCH (09:27)
[2023-05-06] MEDS: DILTIAZEM 120MG SR CAP PO SCH (09:27)
[2023-05-06] MEDS: MULTIVITAMIN TABLET PO SCH (09:27)
[2023-05-06] MEDS: FOLIC ACID 1 MG TABLET PO SCH (09:27)
[2023-05-06] MEDS: THIAMINE HCL 100 MG TABLET PO SCH (09:27)
[2023-05-06] MEDS: FUROSEMIDE 20 MG TABLET PO SCH (09:28)
[2023-05-06] MEDS: TAMSULOSIN HCL 0.4 MG CAP.ER.24H PO SCH (09:28)
[2023-05-06] MEDS: LISINOPRIL 5 MG TABLET PO SCH (09:34)
[2023-05-06] MEDS: 0.9%NACL 1000ML 1,000 ML IV SCH ×2 (09:41→18:34)
[2023-05-07] VITALS (8 sets, daily range): BP systolic 88–127; BP diastolic 55–84; PULSE 64–84; RESP 18; O2SAT 97
[2023-05-07] MEDS: CEFEPIME HCL 1 GM VIAL IVPB SCH ×3 (01:49→17:10)
[2023-05-07 06:14] LABS: HEMATOCRIT 37.1 % (42-54); MEAN CORPUSCULAR HEMOGLOBIN 29.2 pg (27.0-33.0); MEAN CORPUSCULAR HGB CONC 32.3 g/dL (32.0-36.0); MEAN CORPUSCULAR VOLUME 90.3 fL (79-99); RED BLOOD CELL COUNT(AUTO) 4.11 MIL/uL (4.50-6.20); WHITE BLOOD COUNT (AUTO) 8.8 K/uL (4.8-10.8)
[2023-05-07 06:18] LABS: INR 1.35 (0.85-1.15); PROTHROMBIN TIME 15.4 SEC (9.6-11.6)
[2023-05-07 06:39] LABS: ALBUMIN 2.4 g/dL (3.5-5.0); BILIRUBIN,TOTAL 0.7 mg/dL (0.2-1.0); CREATININE 0.6 mg/dL (0.5-1.5); MAGNESIUM 1.8 mg/dL (1.80-2.40); POTASSIUM 3.5 mmol/L (3.5-5.1); TOTAL PROTEIN, SERUM 5.4 g/dL (6.0-8.3)
[2023-05-07] MEDS: 0.9%NACL 1000ML 1,000 ML IV SCH ×2 (06:50→20:10)
[2023-05-07] MEDS: PSYLLIUM HUSK 3.4 GM PO SCH (09:00)
[2023-05-07] MEDS: [UNRECOGNIZED DRUG - OTHER] PO SCH (09:00)
[2023-05-07] MEDS: FOLIC ACID 1 MG TABLET PO SCH (09:56)
[2023-05-07] MEDS: CYANOCOBALAMIN (VITAMIN B-12) 100 MCG TABLET PO SCH (09:56)
[2023-05-07] MEDS: LISINOPRIL 5 MG TABLET PO SCH (09:56)
[2023-05-07] MEDS: TAMSULOSIN HCL 0.4 MG CAP.ER.24H PO SCH (09:56)
[2023-05-07] MEDS: MULTIVITAMIN TABLET PO SCH (09:56)
[2023-05-07] MEDS: THIAMINE HCL 100 MG TABLET PO SCH (09:56)
[2023-05-07] MEDS: FAMOTIDINE 20MG VIAL IV SCH ×3 (09:56→21:20)
[2023-05-07] MEDS: MAGNESIUM OXIDE 400 MG TABLET PO SCH (09:56)
[2023-05-07] MEDS: CA 600MG+VIT D 400 UNIT TAB 1 TAB TABLET PO SCH ×3 (09:56→21:20)
[2023-05-07] MEDS: KCL 20 MEQ ERTAB PO SCH (09:57)
[2023-05-07] MEDS: FUROSEMIDE 20 MG TABLET PO SCH (09:57)
[2023-05-07] MEDS: DILTIAZEM 120MG SR CAP PO SCH (09:57)
[2023-05-07] MEDS ORDERED: WARFARIN SODIUM 1 MG TAB PO SCH ×2 (12:30→16:00)
[2023-05-07] MEDS ORDERED: PHARMACY COMMUNICATION MISC SCH (13:00)
[2023-05-07] MEDS: ENOXAPARIN SODIUM 100 MG/1 ML SQ SCH (13:36)
[2023-05-07] MEDS: WARFARIN SODIUM 1 MG TAB PO SCH (20:45)
[2023-05-07] MEDS: ACETAMINOPHEN 325 MG TAB PO PRN (20:51)
[2023-05-08] VITALS (9 sets, daily range): BP systolic 102–115; BP diastolic 59–73; PULSE 71–89; RESP 17–19; TEMP 98.6; O2SAT 97–98
[2023-05-08] MEDS: ENOXAPARIN SODIUM 100 MG/1 ML SQ SCH ×2 (00:59→13:24)
[2023-05-08] MEDS: CEFEPIME HCL 1 GM VIAL IVPB SCH ×3 (00:59→16:53)
[2023-05-08 06:06] LABS: HEMATOCRIT 39.3 % (42-54); MEAN CORPUSCULAR HEMOGLOBIN 29.1 pg (27.0-33.0); MEAN CORPUSCULAR HGB CONC 31.6 g/dL (32.0-36.0); MEAN CORPUSCULAR VOLUME 92.3 fL (79-99); RED BLOOD CELL COUNT(AUTO) 4.26 MIL/uL (4.50-6.20); RED CELL DISTRIBUTION WIDTH 15.1 % (11.0-15.5); WHITE BLOOD COUNT (AUTO) 6.3 K/uL (4.8-10.8)
[2023-05-08 06:19] LABS: INR 1.09 (0.85-1.15); PROTHROMBIN TIME 12.6 SEC (9.6-11.6)
[2023-05-08 06:20] LABS: PARTIAL THROMBOPLASTIN TIME 41.8 SEC (26.3-35.5)
[2023-05-08 06:21] LABS: ALBUMIN 2.4 g/dL (3.5-5.0); BILIRUBIN,TOTAL 0.8 mg/dL (0.2-1.0); CREATININE 0.7 mg/dL (0.5-1.5); MAGNESIUM 1.7 mg/dL (1.80-2.40); POTASSIUM 3.7 mmol/L (3.5-5.1); TOTAL PROTEIN, SERUM 5.7 g/dL (6.0-8.3)
[2023-05-08] MEDS: PSYLLIUM HUSK 3.4 GM PO SCH (09:00)
[2023-05-08] MEDS: [UNRECOGNIZED DRUG - OTHER] PO SCH (09:00)
[2023-05-08] MEDS: 0.9%NACL 1000ML 1,000 ML IV SCH ×2 (09:30→22:50)
[2023-05-08] MEDS: DILTIAZEM 120MG SR CAP PO SCH (09:47)
[2023-05-08] MEDS: LISINOPRIL 5 MG TABLET PO SCH (09:47)
[2023-05-08] MEDS: TAMSULOSIN HCL 0.4 MG CAP.ER.24H PO SCH (09:47)
[2023-05-08] MEDS: THIAMINE HCL 100 MG TABLET PO SCH (09:47)
[2023-05-08] MEDS: KCL 20 MEQ ERTAB PO SCH (09:48)
[2023-05-08] MEDS: FUROSEMIDE 20 MG TABLET PO SCH (09:48)
[2023-05-08] MEDS: FOLIC ACID 1 MG TABLET PO SCH (09:48)
[2023-05-08] MEDS: MAGNESIUM OXIDE 400 MG TABLET PO SCH (09:48)
[2023-05-08] MEDS: MULTIVITAMIN TABLET PO SCH (09:48)
[2023-05-08] MEDS: CA 600MG+VIT D 400 UNIT TAB 1 TAB TABLET PO SCH ×2 (09:49→21:31)
[2023-05-08] MEDS: FAMOTIDINE 20MG VIAL IV SCH ×2 (09:49→21:30)
[2023-05-08] MEDS: ACETAMINOPHEN 325 MG TAB PO PRN ×2 (09:49→18:24)
[2023-05-08] MEDS: CYANOCOBALAMIN (VITAMIN B-12) 100 MCG TABLET PO SCH (09:49)
[2023-05-08] MEDS: MAGNESIUM 2GM PREMIX 50ML 50 ML IV PRN (18:27)
[2023-05-08] MEDS: WARFARIN SODIUM 1 MG TAB PO SCH (21:31)
[2023-05-09] VITALS (8 sets, daily range): BP systolic 108–119; BP diastolic 61–81; PULSE 76–91; RESP 16–19; O2SAT 96–98
[2023-05-09] MEDS: ENOXAPARIN SODIUM 100 MG/1 ML SQ SCH ×2 (01:24→13:38)
[2023-05-09] MEDS: CEFEPIME HCL 1 GM VIAL IVPB SCH ×3 (01:24→18:20)
[2023-05-09 05:33] LABS: BASOPHILS # (AUTO) 0.08 K/uL (0.00-0.20); BASOPHILS % (AUTO) 1.3 % (0.0-5.0); EOSINOPHILS # (AUTO) 0.15 K/uL (0.00-0.70); EOSINOPHILS % (AUTO) 2.4 % (0.0-8.0); HEMATOCRIT 37.9 % (42-54); IMMATURE GRANULOCYTE ABSOLUTE 0.06 K/uL (0-1); LYMPHOCYTES # (AUTO) 1.1 K/uL (1.0-4.8); LYMPHOCYTES % (AUTO) 17.2 % (21.0-51.0); MEAN CORPUSCULAR HEMOGLOBIN 29.1 pg (27.0-33.0); MEAN CORPUSCULAR HGB CONC 32.5 g/dL (32.0-36.0); MEAN CORPUSCULAR VOLUME 89.8 fL (79-99); MONOCYTES # (AUTO) 1.2 K/uL (0.1-1.0); NEUTROPHILS # (AUTO) 3.6 K/uL (1.8-7.7); NEUTROPHILS % (AUTO) 58.1 % (40.0-77.0); PLATELET COUNT (AUTO) 125 K/uL (130-400); RED BLOOD CELL COUNT(AUTO) 4.22 MIL/uL (4.50-6.20); RED CELL DISTRIBUTION WIDTH 15.3 % (11.0-15.5); WHITE BLOOD COUNT (AUTO) 6.2 K/uL (4.8-10.8)
[2023-05-09 05:44] LABS: INR 1.07 (0.85-1.15); PROTHROMBIN TIME 12.4 SEC (9.6-11.6)
[2023-05-09 05:48] LABS: ALBUMIN 2.5 g/dL (3.5-5.0); ASPARTATE AMINOTRANSFERASE 15 U/L (10-37); BILIRUBIN,TOTAL 0.5 mg/dL (0.2-1.0); CARBON DIOXIDE 29 mmol/L (21-32); CHLORIDE 102 mmol/L (101-111); CREATININE 0.7 mg/dL (0.5-1.5); GLOMERULAR FILTR. RATE CALC 94 mL/min (>90); GLUCOSE,RANDOM 94 mg/dL (70-105); POTASSIUM 3.3 mmol/L (3.5-5.1); SODIUM SERUM 134 mmol/L (136-145); TOTAL PROTEIN, SERUM 5.7 g/dL (6.0-8.3); UREA NITROGEN, BLOOD 8 mg/dL (7-18)
[2023-05-09 05:49] LABS: ALANINE AMINOTRANSFERASE < 6 U/L (12-78)
[2023-05-09] MEDS: PSYLLIUM HUSK 3.4 GM PO SCH (09:00)
[2023-05-09] MEDS: [UNRECOGNIZED DRUG - OTHER] PO SCH (09:00)
[2023-05-09] MEDS: FAMOTIDINE 20MG VIAL IV SCH ×2 (09:39→20:29)
[2023-05-09] MEDS: MAGNESIUM OXIDE 400 MG TABLET PO SCH (09:39)
[2023-05-09] MEDS: FOLIC ACID 1 MG TABLET PO SCH (09:39)
[2023-05-09] MEDS: CA 600MG+VIT D 400 UNIT TAB 1 TAB TABLET PO SCH ×2 (09:39→20:29)
[2023-05-09] MEDS: THIAMINE HCL 100 MG TABLET PO SCH (09:39)
[2023-05-09] MEDS: LISINOPRIL 5 MG TABLET PO SCH (09:40)
[2023-05-09] MEDS: MULTIVITAMIN TABLET PO SCH (09:41)
[2023-05-09] MEDS: CYANOCOBALAMIN (VITAMIN B-12) 100 MCG TABLET PO SCH (09:41)
[2023-05-09] MEDS: FUROSEMIDE 20 MG TABLET PO SCH (09:41)
[2023-05-09] MEDS: TAMSULOSIN HCL 0.4 MG CAP.ER.24H PO SCH (09:41)
[2023-05-09] MEDS: KCL 20 MEQ ERTAB PO SCH (09:41)
[2023-05-09] MEDS: DILTIAZEM 120MG SR CAP PO SCH (09:42)
[2023-05-09] MEDS: 0.9%NACL 1000ML 1,000 ML IV SCH (13:38)
[2023-05-09] MEDS: WARFARIN SODIUM 5 MG TAB PO SCH (18:20)
[2023-05-09] MEDS: ACETAMINOPHEN 325 MG TAB PO PRN (20:33)
[2023-05-10] MEDS: ENOXAPARIN SODIUM 100 MG/1 ML SQ SCH ×2 (01:15→12:56)
[2023-05-10] MEDS: CEFEPIME HCL 1 GM VIAL IVPB SCH ×3 (01:24→17:34)
[2023-05-10] MEDS: 0.9%NACL 1000ML 1,000 ML IV SCH ×3 (01:25→20:04)
[2023-05-10 03:54] LABS: BASOPHILS # (AUTO) 0.06 K/uL (0.00-0.20); BASOPHILS % (AUTO) 1.2 % (0.0-5.0); EOSINOPHILS # (AUTO) 0.26 K/uL (0.00-0.70); EOSINOPHILS % (AUTO) 5.2 % (0.0-8.0); HEMATOCRIT 35.1 % (42-54); IMMATURE GRANULOCYTE ABSOLUTE 0.05 K/uL (0-1); LYMPHOCYTES # (AUTO) 1.2 K/uL (1.0-4.8); MEAN CORPUSCULAR HEMOGLOBIN 29.2 pg (27.0-33.0); MEAN CORPUSCULAR HGB CONC 32.5 g/dL (32.0-36.0); MEAN CORPUSCULAR VOLUME 89.8 fL (79-99); MONOCYTES # (AUTO) 0.9 K/uL (0.1-1.0); MONOCYTES % (AUTO) 18.2 % (3.0-13.0); NEUTROPHILS # (AUTO) 2.5 K/uL (1.8-7.7); NEUTROPHILS % (AUTO) 50.4 % (40.0-77.0); PLATELET COUNT (AUTO) 135 K/uL (130-400); RED BLOOD CELL COUNT(AUTO) 3.91 MIL/uL (4.50-6.20); RED CELL DISTRIBUTION WIDTH 15.2 % (11.0-15.5)
[2023-05-10 04:07] LABS: INR 1.03 (0.85-1.15); PROTHROMBIN TIME 11.9 SEC (9.6-11.6)
[2023-05-10 04:11] LABS: CREATININE 0.6 mg/dL (0.5-1.5); POTASSIUM 3.1 mmol/L (3.5-5.1)
[2023-05-10 04:45] VITALS: BP 115/70; PULSE 70; RESP 18
[2023-05-10 08:00] VITALS: BP 118/72; PULSE 72; RESP 22; O2SAT 98
[2023-05-10] MEDS: PSYLLIUM HUSK 3.4 GM PO SCH (09:00)
[2023-05-10] MEDS: [UNRECOGNIZED DRUG - OTHER] PO SCH (09:00)
[2023-05-10] MEDS: MULTIVITAMIN TABLET PO SCH (09:55)
[2023-05-10] MEDS: CA 600MG+VIT D 400 UNIT TAB 1 TAB TABLET PO SCH ×2 (09:56→20:00)
[2023-05-10] MEDS: FUROSEMIDE 20 MG TABLET PO SCH (09:56)
[2023-05-10] MEDS: DILTIAZEM 120MG SR CAP PO SCH (09:56)
[2023-05-10] MEDS: THIAMINE HCL 100 MG TABLET PO SCH (09:56)
[2023-05-10] MEDS: CYANOCOBALAMIN (VITAMIN B-12) 100 MCG TABLET PO SCH (09:56)
[2023-05-10] MEDS: MAGNESIUM OXIDE 400 MG TABLET PO SCH (09:56)
[2023-05-10] MEDS: FAMOTIDINE 20MG VIAL IV SCH ×2 (09:57→20:00)
[2023-05-10] MEDS: FOLIC ACID 1 MG TABLET PO SCH (09:57)
[2023-05-10] MEDS: TAMSULOSIN HCL 0.4 MG CAP.ER.24H PO SCH (09:57)
[2023-05-10] MEDS: LISINOPRIL 5 MG TABLET PO SCH (09:57)
[2023-05-10] MEDS: KCL 20 MEQ ERTAB PO SCH (09:58)
[2023-05-10 12:00] VITALS: BP 121/63; PULSE 79; RESP 18
[2023-05-10 16:00] VITALS: BP 123/79; PULSE 76; RESP 18
[2023-05-10] MEDS: WARFARIN SODIUM 5 MG TAB PO SCH (17:34)
[2023-05-10] MEDS ORDERED: POTASSIUM CHLORIDE 10% ELIXIR 20 MEQ/15 ML UDCUP PO PRN (18:30)
[2023-05-10] MEDS ORDERED: POTASSIUM CHLORIDE 20MEQ/100ML 100 ML IV PRN (18:30)
[2023-05-10] MEDS: KCL 20 MEQ ERTAB PO PRN (19:21)
[2023-05-10 20:00] VITALS: BP 117/76; PULSE 64; RESP 16; O2SAT 96
[2023-05-10] MEDS: BACLOFEN 10 MG TABLET PO PRN (20:10)
[2023-05-10 23:56] VITALS: BP 130/75; PULSE 61; RESP 16
[2023-05-11] VITALS (7 sets, daily range): BP systolic 106–127; BP diastolic 71–89; PULSE 68–80; RESP 16–20; O2SAT 95–98
[2023-05-11] MEDS: CEFEPIME HCL 1 GM VIAL IVPB SCH ×3 (00:28→17:45)
[2023-05-11] MEDS: ENOXAPARIN SODIUM 100 MG/1 ML SQ SCH ×2 (00:29→13:48)
[2023-05-11 07:18] LABS: BASOPHILS # (AUTO) 0.07 K/uL (0.00-0.20); EOSINOPHILS # (AUTO) 0.29 K/uL (0.00-0.70); EOSINOPHILS % (AUTO) 8.2 % (0.0-8.0); IMMATURE GRANULOCYTE ABSOLUTE 0.01 K/uL (0-1); LYMPHOCYTES # (AUTO) 0.9 K/uL (1.0-4.8); LYMPHOCYTES % (AUTO) 26.5 % (21.0-51.0); MEAN CORPUSCULAR HEMOGLOBIN 29.4 pg (27.0-33.0); MEAN CORPUSCULAR HGB CONC 32.2 g/dL (32.0-36.0); MEAN CORPUSCULAR VOLUME 91.4 fL (79-99); MONOCYTES # (AUTO) 0.6 K/uL (0.1-1.0); MONOCYTES % (AUTO) 16.3 % (3.0-13.0); NEUTROPHILS # (AUTO) 1.7 K/uL (1.8-7.7); NEUTROPHILS % (AUTO) 46.7 % (40.0-77.0); PLATELET COUNT (AUTO) 135 K/uL (130-400); RED BLOOD CELL COUNT(AUTO) 3.94 MIL/uL (4.50-6.20); RED CELL DISTRIBUTION WIDTH 14.9 % (11.0-15.5); WHITE BLOOD COUNT (AUTO) 3.6 K/uL (4.8-10.8)
[2023-05-11 07:22] LABS: INR 1.03 (0.85-1.15); PROTHROMBIN TIME 11.9 SEC (9.6-11.6)
[2023-05-11 07:31] LABS: ALBUMIN 2.2 g/dL (3.5-5.0); CREATININE 0.5 mg/dL (0.5-1.5)
[2023-05-11 07:38] LABS: BILIRUBIN,TOTAL 0.3 mg/dL (0.2-1.0); TOTAL PROTEIN, SERUM 5.4 g/dL (6.0-8.3)
[2023-05-11] MEDS: PSYLLIUM HUSK 3.4 GM PO SCH (09:00)
[2023-05-11] MEDS: [UNRECOGNIZED DRUG - OTHER] PO SCH (09:00)
[2023-05-11] MEDS: FAMOTIDINE 20MG VIAL IV SCH ×2 (09:41→20:45)
[2023-05-11] MEDS: FOLIC ACID 1 MG TABLET PO SCH (09:41)
[2023-05-11] MEDS: MULTIVITAMIN TABLET PO SCH (09:41)
[2023-05-11] MEDS: THIAMINE HCL 100 MG TABLET PO SCH (09:42)
[2023-05-11] MEDS: LISINOPRIL 5 MG TABLET PO SCH (09:42)
[2023-05-11] MEDS: MAGNESIUM OXIDE 400 MG TABLET PO SCH (09:42)
[2023-05-11] MEDS: KCL 20 MEQ ERTAB PO SCH (09:44)
[2023-05-11] MEDS: CA 600MG+VIT D 400 UNIT TAB 1 TAB TABLET PO SCH ×2 (09:44→20:45)
[2023-05-11] MEDS: DILTIAZEM 120MG SR CAP PO SCH (09:46)
[2023-05-11] MEDS: TAMSULOSIN HCL 0.4 MG CAP.ER.24H PO SCH (09:49)
[2023-05-11] MEDS: CYANOCOBALAMIN (VITAMIN B-12) 100 MCG TABLET PO SCH (09:49)
[2023-05-11] MEDS: FUROSEMIDE 20 MG TABLET PO SCH (09:49)
[2023-05-11] MEDS: 0.9%NACL 1000ML 1,000 ML IV SCH (09:54)
[2023-05-11] MEDS: KCL 20 MEQ ERTAB PO PRN ×3 (13:49→19:07)
[2023-05-11] MEDS: WARFARIN SODIUM 5 MG TAB PO SCH (16:32)
[2023-05-11] MEDS: BACLOFEN 10 MG TABLET PO PRN (20:52)
[2023-05-12] MEDS: ACETAMINOPHEN 325 MG TAB PO PRN ×2 (00:01→19:49)
[2023-05-12] MEDS: CEFEPIME HCL 1 GM VIAL IVPB SCH ×3 (00:53→17:26)
[2023-05-12] MEDS: ENOXAPARIN SODIUM 100 MG/1 ML SQ SCH ×2 (00:54→13:56)
[2023-05-12] MEDS: 0.9%NACL 1000ML 1,000 ML IV SCH ×2 (02:04→17:27)
[2023-05-12 04:00] VITALS: BP 119/74; PULSE 59; RESP 17
[2023-05-12 04:56] LABS: CREATININE 0.5 mg/dL (0.5-1.5); POTASSIUM 3.2 mmol/L (3.5-5.1)
[2023-05-12 05:00] LABS: INR 1.19 (0.85-1.15); PROTHROMBIN TIME 12.7 SEC (9.6-11.6)
[2023-05-12] MEDS: KCL 20 MEQ ERTAB PO PRN ×3 (06:12→17:36)
[2023-05-12 08:00] VITALS: BP 126/81; PULSE 71; RESP 17; O2SAT 98
[2023-05-12] MEDS: PSYLLIUM HUSK 3.4 GM PO SCH (08:05)
[2023-05-12] MEDS: [UNRECOGNIZED DRUG - OTHER] PO SCH (08:05)
[2023-05-12] MEDS: MULTIVITAMIN TABLET PO SCH (10:46)
[2023-05-12] MEDS: TAMSULOSIN HCL 0.4 MG CAP.ER.24H PO SCH (10:47)
[2023-05-12] MEDS: THIAMINE HCL 100 MG TABLET PO SCH (10:47)
[2023-05-12] MEDS: MAGNESIUM OXIDE 400 MG TABLET PO SCH (10:47)
[2023-05-12] MEDS: FOLIC ACID 1 MG TABLET PO SCH (10:47)
[2023-05-12] MEDS: CYANOCOBALAMIN (VITAMIN B-12) 100 MCG TABLET PO SCH (10:47)
[2023-05-12] MEDS: KCL 20 MEQ ERTAB PO SCH (10:48)
[2023-05-12] MEDS: FUROSEMIDE 20 MG TABLET PO SCH (10:48)
[2023-05-12] MEDS: DILTIAZEM 120MG SR CAP PO SCH (10:48)
[2023-05-12] MEDS: FAMOTIDINE 20MG VIAL IV SCH ×2 (10:49→19:47)
[2023-05-12] MEDS: CA 600MG+VIT D 400 UNIT TAB 1 TAB TABLET PO SCH ×2 (10:49→19:47)
[2023-05-12] MEDS: LISINOPRIL 5 MG TABLET PO SCH (10:49)
[2023-05-12 11:44] VITALS: BP 128/72; PULSE 74; RESP 17
[2023-05-12 16:00] VITALS: BP 114/75; PULSE 74; RESP 18
[2023-05-12] MEDS: WARFARIN SODIUM 5 MG TAB PO SCH (16:06)
[2023-05-12 20:00] VITALS: BP 118/75; PULSE 67; RESP 17; O2SAT 96
[2023-05-13] VITALS: BP 113/77; PULSE 69; RESP 17
[2023-05-13] MEDS: ENOXAPARIN SODIUM 100 MG/1 ML SQ SCH ×2 (00:13→13:59)
[2023-05-13] MEDS: CEFEPIME HCL 1 GM VIAL IVPB SCH ×3 (00:13→16:56)
[2023-05-13 04:00] VITALS: BP 129/83; PULSE 66; RESP 17
[2023-05-13 05:50] LABS: INR 1.39 (0.85-1.15); PROTHROMBIN TIME 14.8 SEC (9.6-11.6)
[2023-05-13 05:57] LABS: CREATININE 0.5 mg/dL (0.5-1.5); POTASSIUM 3.3 mmol/L (3.5-5.1)
[2023-05-13] MEDS: 0.9%NACL 1000ML 1,000 ML IV SCH (06:26)
[2023-05-13 07:37] VITALS: O2SAT 96
[2023-05-13 08:00] VITALS: BP 126/97; PULSE 75; RESP 18
[2023-05-13] MEDS ORDERED: KCL 20 MEQ ERTAB PO ONE (08:00)
[2023-05-13] MEDS: FUROSEMIDE 20 MG TABLET PO SCH (08:46)
[2023-05-13] MEDS: TAMSULOSIN HCL 0.4 MG CAP.ER.24H PO SCH (08:47)
[2023-05-13] MEDS: THIAMINE HCL 100 MG TABLET PO SCH (08:47)
[2023-05-13] MEDS: FOLIC ACID 1 MG TABLET PO SCH (08:47)
[2023-05-13] MEDS: MAGNESIUM OXIDE 400 MG TABLET PO SCH (08:47)
[2023-05-13] MEDS: LISINOPRIL 5 MG TABLET PO SCH (08:47)
[2023-05-13] MEDS: MULTIVITAMIN TABLET PO SCH (08:47)
[2023-05-13] MEDS: FAMOTIDINE 20MG VIAL IV SCH (08:48)
[2023-05-13] MEDS: DILTIAZEM 120MG SR CAP PO SCH (08:48)
[2023-05-13] MEDS: CA 600MG+VIT D 400 UNIT TAB 1 TAB TABLET PO SCH (08:48)
[2023-05-13] MEDS: KCL 20 MEQ ERTAB PO SCH (08:55)
[2023-05-13] MEDS: CYANOCOBALAMIN (VITAMIN B-12) 100 MCG TABLET PO SCH (08:55)
[2023-05-13] MEDS: [UNRECOGNIZED DRUG - OTHER] PO SCH (08:58)
[2023-05-13] MEDS: PSYLLIUM HUSK 3.4 GM PO SCH (08:58)
[2023-05-13] MEDS ORDERED: ENOX100D4 SQ (10:38)
[2023-05-13] MEDS ORDERED: CEFD300C3 PO (10:40)
[2023-05-13 12:00] VITALS: BP 121/83; PULSE 69; RESP 18
[2023-05-13] MEDS: WARFARIN SODIUM 5 MG TAB PO SCH (16:12)
== END 2023-05-13 18:52 | disposition home or self-care (01) | DRG 871 ==
LOC: EDH 20:26 → EDHIP 05-05 01:02 → 3AH 05-05 09:20
PROVIDERS: ADMIT Hospitalist; ATTEND Hospitalist
DX: A41.51 Sepsis due to Escherichia coli [E. coli] (principal); E43 Unspecified severe protein-calorie malnutrition; R53.2 Functional quadriplegia; N39.0 Urinary tract infection, site not specified; D64.9 Anemia, unspecified; I10 Essential (primary) hypertension; I48.0 Paroxysmal atrial fibrillation; N40.0 Benign prostatic hyperplasia without lower urinary tract symptoms; R79.1 Abnormal coagulation profile; T45.515A Adverse effect of anticoagulants, initial encounter; R55 Syncope and collapse; Z96.641 Presence of right artificial hip joint; Z68.30 Body mass index [BMI] 30.0-30.9, adult; B96.89 Other specified bacterial agents as the cause of diseases classified elsewhere; Y92.89 Other specified places as the place of occurrence of the external cause; Z82.49 Family history of ischemic heart disease and other diseases of the circulatory system; Z86.711 Personal history of pulmonary embolism; Z86.718 Personal history of other venous thrombosis and embolism; Z87.440 Personal history of urinary (tract) infections; Z90.49 Acquired absence of other specified parts of digestive tract; Z99.3 Dependence on wheelchair; Z79.01 Long term (current) use of anticoagulants; Z88.0 Allergy status to penicillin; Z91.041 Radiographic dye allergy status; Z91.81 History of falling
CPT/HCPCS: 36415; 70450; 71045; 80048; 80053; 81001; 82306; 83605; 83735; 84132; 84145; 84443; 84484; 85025; 85027; 85610; 85730; 86140; 87040; 87077; 87088; 87186; 92610; 93005; 99291; G0378; J0692; J1650; J3370; J3430; J3475; J3480; J3490

== ENCOUNTER → 2023-07-30 | Outpatient (CLI) | payer OTHER ==
[~2023-07-30] MED LIST changes: +CEFD300C3 PO; +ENOX100D4 SQ
[2023-07-30 08:49] LABS: BASOPHILS % (AUTO) 1.6 % (0.0-5.0); EOSINOPHILS # (AUTO) 0.43 K/uL (0.00-0.70); EOSINOPHILS % (AUTO) 6.9 % (0.0-8.0); HEMATOCRIT 43.8 % (42-54); IMMATURE GRANULOCYTE ABSOLUTE 0.02 K/uL (0-1); LYMPHOCYTES # (AUTO) 1.4 K/uL (1.0-4.8); LYMPHOCYTES % (AUTO) 21.7 % (21.0-51.0); MEAN CORPUSCULAR HEMOGLOBIN 30.2 pg (27.0-33.0); MEAN CORPUSCULAR HGB CONC 32.4 g/dL (32.0-36.0); MEAN CORPUSCULAR VOLUME 93.2 fL (79-99); MONOCYTES # (AUTO) 0.7 K/uL (0.1-1.0); MONOCYTES % (AUTO) 11.8 % (3.0-13.0); NEUTROPHILS # (AUTO) 3.6 K/uL (1.8-7.7); NEUTROPHILS % (AUTO) 57.7 % (40.0-77.0); PLATELET COUNT (AUTO) 188 K/uL (130-400); RED CELL DISTRIBUTION WIDTH 13.8 % (11.0-15.5); WHITE BLOOD COUNT (AUTO) 6.3 K/uL (4.8-10.8)
[2023-07-30 09:02] LABS: CREATININE 0.7 mg/dL (0.5-1.5); POTASSIUM 3.9 mmol/L (3.5-5.1)
== END | disposition home or self-care (01) ==
LOC: LAB 07-29 14:46
PROVIDERS: ATTEND Urology
DX: R31.29 Other microscopic hematuria (principal)
CPT/HCPCS: 36415; 80048; 85025

== ENCOUNTER → 2023-08-08 | Outpatient (CLI) | payer OTHER | END | disposition home or self-care (01) | LOC: RAH 10:45 | PROVIDERS: ATTEND Urology | DX: N28.1 Cyst of kidney, acquired (principal); N39.0 Urinary tract infection, site not specified; N20.0 Calculus of kidney; N13.30 Unspecified hydronephrosis | CPT/HCPCS: 76770 ==

== ENCOUNTER 2023-09-09 22:01 | Emergency (ER) | payer OTHER ==
[~2023-09-09] VITALS: Ht 177.8 cm; Wt 90.7 kg
[~2023-09-09 22:01] MED LIST changes: -POTA-364 PO; +POTA-79 PO
[2023-09-09] MEDS: MORPHINE 4 MG SYG IVP ONE (22:30)
[2023-09-09 22:38] LABS: BASOPHILS # (AUTO) 0.03 K/uL (0.00-0.20); BASOPHILS % (AUTO) 0.9 % (0.0-5.0); EOSINOPHILS # (AUTO) 0.05 K/uL (0.00-0.70); EOSINOPHILS % (AUTO) 1.4 % (0.0-8.0); IMMATURE GRANULOCYTE ABSOLUTE 0.03 K/uL (0-1); LYMPHOCYTES # (AUTO) 0.2 K/uL (1.0-4.8); MEAN CORPUSCULAR HEMOGLOBIN 28.4 pg (27.0-33.0); MEAN CORPUSCULAR VOLUME 88.9 fL (79-99); MONOCYTES % (AUTO) 1.1 % (3.0-13.0); NEUTROPHILS # (AUTO) 3.1 K/uL (1.8-7.7); NEUTROPHILS % (AUTO) 89.7 % (40.0-77.0); PLATELET COUNT (AUTO) 172 K/uL (130-400); RED BLOOD CELL COUNT(AUTO) 4.61 MIL/uL (4.50-6.20); RED CELL DISTRIBUTION WIDTH 14.4 % (11.0-15.5); WHITE BLOOD COUNT (AUTO) 3.5 K/uL (4.8-10.8)
[2023-09-09 22:52] LABS: CARBON DIOXIDE 20 mmol/L (21-32); CHLORIDE 102 mmol/L (101-111); CREATININE 0.8 mg/dL (0.5-1.5); GLOMERULAR FILTR. RATE CALC 90 mL/min (>90); GLUCOSE,RANDOM 95 mg/dL (70-105); POTASSIUM 3.2 mmol/L (3.5-5.1); SODIUM SERUM 137 mmol/L (136-145); UREA NITROGEN, BLOOD 8 mg/dL (7-18)
[2023-09-09 23:02] LABS: ALANINE AMINOTRANSFERASE < 6 U/L (12-78); ALBUMIN 2.7 g/dL (3.5-5.0); ASPARTATE AMINOTRANSFERASE 10 U/L (10-37); BILIRUBIN,TOTAL 0.5 mg/dL (0.2-1.0); CREATINE KINASE, TOTAL 14 U/L (21-232); TOTAL PROTEIN, SERUM 6.1 g/dL (6.0-8.3)
[2023-09-09] MEDS: ONDANSETRON 4MG INJ IVP ONE (23:46)
[2023-09-09] MEDS: 0.9%NACL 1000ML 1,000 ML IV SCH (23:46)
[2023-09-09] MEDS: DiphenhydrAMINE HCL 50 MG/ML VIAL IV ONE (23:46)
[2023-09-09] MEDS: KETOROLAC 30MG VIAL (30MG/ML) IVP ONE (23:47)
[2023-09-10 00:19] LABS: RAPID GROUP A STREP negative (NEGATIVE)
[2023-09-10 00:21] LABS: SARS-CoV-2, RNA, NAAT NEGATIVE SARS CoV-2 (NEGATIVE)
[2023-09-10 00:25] LABS: INFLUENZA TYPE A Negative For Type A (NEGATIVE); INFLUENZA TYPE B Negative For Type B (NEGATIVE)
[2023-09-10] MEDS ORDERED: IBUP-1493 PO (00:44)
[2023-09-10] MEDS ORDERED: METH-662 PO (00:44)
[2023-09-10 02:01] VITALS: BP 118/67; PULSE 102; RESP 17; O2SAT 96
== END 2023-09-10 02:03 | disposition home or self-care (01) ==
LOC: EDH 22:01
DX: M79.10 Myalgia, unspecified site (principal); I48.91 Unspecified atrial fibrillation; I10 Essential (primary) hypertension; Z79.01 Long term (current) use of anticoagulants; Z79.899 Other long term (current) drug therapy; Z88.0 Allergy status to penicillin; Z88.8 Allergy status to other drugs, medicaments and biological substances; Z90.49 Acquired absence of other specified parts of digestive tract; Z91.041 Radiographic dye allergy status; Z20.822 Contact with and (suspected) exposure to COVID-19
CPT/HCPCS: 99285; 96374; 71045; 96375; 87635; 96361; 82550; 84484; 80053; 85025; 87880; 87804 ×2; 36415; 93005; J1200; J7030; J2405; J1885

== ENCOUNTER 2023-09-10 12:31 | Inpatient (IN) | payer OTHER ==
[~2023-09-10] VITALS: Ht 182.9 cm; Wt 108.1 kg
[~2023-09-10 12:31] MED LIST changes: +IBUP-1493 PO; +METH-662 PO
[2023-09-10] MEDS: LORAZEPAM 2 MG/ML 1 ML VIAL IVP ONE ×2 (12:50→13:07)
[2023-09-10] MEDS: ACETAMINOPHEN 500 MG TABLET PO ONE (13:08)
[2023-09-10 13:26] LABS: APPEARANCE,URINE TURBID (CLEAR); BILIRUBIN,URINE NEGATIVE (NEGATIVE); COLOR,URINE YELLOW (YELLOW); GLUCOSE, URINE (UA) NEGATIVE (NEGATIVE); KETONES,URINE NEGATIVE (NEGATIVE); LEUKOCYTE ESTERASE ,URINE 500 Leu/uL (NEGATIVE); NITRATE,URINE 2+ (NEGATIVE); OCCULT BLOOD,URINE MODERATE (NEGATIVE); PH,URINE 5.5 (5.0-8.0); PROTEIN,URINE 70 mg/dL (NEGATIVE); UROBILINOGEN,URINE 0.2 mg/dL (0.2-1.0)
[2023-09-10 13:26] LABS: ABG OXYGEN SATURATION 80.3 % (95.0-99.0); BASE EXCESS,VENOUS BLOOD GAS -1.2 (-2.0-3.0); HCO3,VENOUS BLOOD GAS 22.4 (21.0-28.0); PCO2,VENOUS BLOOD GAS 35 (32-45); PO2,VENOUS BLOOD GAS 42.7 mmHg (35.0-45.0); VENT MODE, BG NC (ROOM AIR)
[2023-09-10 13:27] LABS: ADD UA MICROSCOPIC YES
[2023-09-10 13:30] LABS: BACTERIA,URINE MANY /HPF (None Seen); MUCUS,URINE RARE LPF (None Seen); SQUAMOUS EPITHELIAL CELL,UR FEW /HPF (0-2); WBC CLUMP MANY /HPF (0-1); WBC,URINE TNTC /HPF (0-1)
[2023-09-10 13:33] LABS: AMPHET/METH SCREEN,URINE NEGATIVE (NEGATIVE); BARBITURATE SCREEN, URINE NEGATIVE (NEGATIVE); BENZODIAZEPINES SCREEN,URINE NEGATIVE (NEGATIVE); CANNABINOID SCREEN,URINE NEGATIVE (NEGATIVE); COCAINE SCREEN,URINE NEGATIVE (NEGATIVE); OPIATE SCREEN,URINE NEGATIVE (NEGATIVE); PHENCYCLIDINE SCREEN,URINE NEGATIVE (NEGATIVE)
[2023-09-10 13:44] LABS: BASOPHILS # (AUTO) 0.06 K/uL (0.00-0.20); BASOPHILS % (AUTO) 0.6 % (0.0-5.0); EOSINOPHILS # (AUTO) 0.12 K/uL (0.00-0.70); EOSINOPHILS % (AUTO) 1.3 % (0.0-8.0); HEMATOCRIT 39.9 % (42-54); IMMATURE GRANULOCYTE ABSOLUTE 0.05 K/uL (0-1); LYMPHOCYTES # (AUTO) 0.2 K/uL (1.0-4.8); MEAN CORPUSCULAR HEMOGLOBIN 28.9 pg (27.0-33.0); MEAN CORPUSCULAR HGB CONC 32.8 g/dL (32.0-36.0); MEAN CORPUSCULAR VOLUME 88.1 fL (79-99); MONOCYTES # (AUTO) 0.6 K/uL (0.1-1.0); MONOCYTES % (AUTO) 5.8 % (3.0-13.0); NEUTROPHILS # (AUTO) 8.6 K/uL (1.8-7.7); NEUTROPHILS % (AUTO) 89.8 % (40.0-77.0); PLATELET COUNT (AUTO) 120 K/uL (130-400); RED BLOOD CELL COUNT(AUTO) 4.53 MIL/uL (4.50-6.20); RED CELL DISTRIBUTION WIDTH 14.7 % (11.0-15.5); WHITE BLOOD COUNT (AUTO) 9.6 K/uL (4.8-10.8)
[2023-09-10 13:49] LABS: CARBON DIOXIDE 25 mmol/L (21-32); CHLORIDE 102 mmol/L (101-111); CREATININE 0.9 mg/dL (0.5-1.5); GLOMERULAR FILTR. RATE CALC 87 mL/min (>90); GLUCOSE,RANDOM 103 mg/dL (70-105); POTASSIUM 3.6 mmol/L (3.5-5.1); SODIUM SERUM 138 mmol/L (136-145); UREA NITROGEN, BLOOD 12 mg/dL (7-18)
[2023-09-10 13:53] LABS: ALANINE AMINOTRANSFERASE 10 U/L (12-78); ALBUMIN 2.6 g/dL (3.5-5.0); ALCOHOL, BLOOD < 3 mg/dL (0-10); ASPARTATE AMINOTRANSFERASE 23 U/L (10-37); CREATINE KINASE, TOTAL 153 U/L (21-232); TOTAL PROTEIN, SERUM 5.4 g/dL (6.0-8.3)
[2023-09-10] MEDS: ACETAMINOPHEN 325 MG TAB PO ONE (14:17)
[2023-09-10] MEDS: 0.9%NACL 1000ML 2,328 ML IV ONE (14:19)
[2023-09-10] MEDS: CEFTRIAXONE 2GM VIAL IVPB ONE (14:19)
[2023-09-10 15:32] LABS: INR 1.68 (0.85-1.15); PROTHROMBIN TIME 18.8 SEC (9.6-11.6)
[2023-09-10 15:33] LABS: PARTIAL THROMBOPLASTIN TIME 37.9 SEC (26.3-35.5)
[2023-09-10] MEDS: FAMOTIDINE 20MG VIAL IV SCH (15:41)
[2023-09-10] MEDS: MAGNESIUM 2GM PREMIX 50ML 50 ML IV SCH (15:42)
[2023-09-10] MEDS: 0.9%NACL 1000ML 1,000 ML IV SCH (15:42)
[2023-09-10 16:37] LABS: HEMOGLOBIN A1C 5.5 % (4.0-6.0)
[2023-09-10 17:15] VITALS: BP 104/66; PULSE 78; RESP 18
[2023-09-10 17:16] LABS: THYROID STIMULATING HORMONE 1.91 uIU/mL (0.36-3.74)
[2023-09-10] MEDS: CEFEPIME HCL 2 GM VIAL IVPB SCH (18:42)
[2023-09-10] MEDS: HEPARIN 25,000 UNITS/250ML D5W 250 ML IV SCH (20:10)
[2023-09-10] MEDS: HEPARIN 5,000 UNIT VIAL IV PRN (20:12)
[2023-09-10 20:40] VITALS: BP 102/71; PULSE 66; RESP 18
[2023-09-10 23:57] VITALS: BP 112/70; PULSE 69; RESP 18
[2023-09-11] VITALS (10 sets, daily range): BP systolic 110–136; BP diastolic 63–90; PULSE 71–94; RESP 16–20; O2SAT 97–99
[2023-09-11] MEDS: IPRATROPIUM 0.5 MG/2.5 ML INH IH PRN (01:20)
[2023-09-11] MEDS: ALPRAZOLAM 1 MG TAB PO ONE (01:42)
[2023-09-11 05:08] LABS: BASOPHILS # (AUTO) 0.05 K/uL (0.00-0.20); BASOPHILS % (AUTO) 0.6 % (0.0-5.0); EOSINOPHILS # (AUTO) 0.06 K/uL (0.00-0.70); EOSINOPHILS % (AUTO) 0.7 % (0.0-8.0); HEMATOCRIT 36.3 % (42-54); IMMATURE GRANULOCYTE ABSOLUTE 0.05 K/uL (0-1); LYMPHOCYTES # (AUTO) 0.7 K/uL (1.0-4.8); LYMPHOCYTES % (AUTO) 8.2 % (21.0-51.0); MEAN CORPUSCULAR HEMOGLOBIN 28.5 pg (27.0-33.0); MEAN CORPUSCULAR VOLUME 89.2 fL (79-99); MONOCYTES # (AUTO) 0.8 K/uL (0.1-1.0); MONOCYTES % (AUTO) 9.7 % (3.0-13.0); NEUTROPHILS # (AUTO) 6.7 K/uL (1.8-7.7); NEUTROPHILS % (AUTO) 80.2 % (40.0-77.0); PLATELET COUNT (AUTO) 115 K/uL (130-400); RED BLOOD CELL COUNT(AUTO) 4.07 MIL/uL (4.50-6.20); WHITE BLOOD COUNT (AUTO) 8.4 K/uL (4.8-10.8)
[2023-09-11 05:22] LABS: INR 1.78 (0.85-1.15); PROTHROMBIN TIME 19.9 SEC (9.6-11.6)
[2023-09-11 05:28] LABS: ALBUMIN 2.1 g/dL (3.5-5.0); ASPARTATE AMINOTRANSFERASE 20 U/L (10-37); BILIRUBIN,TOTAL 0.6 mg/dL (0.2-1.0); CARBON DIOXIDE 26 mmol/L (21-32); CHLORIDE 106 mmol/L (101-111); CREATININE 0.7 mg/dL (0.5-1.5); GLOMERULAR FILTR. RATE CALC 94 mL/min (>90); GLUCOSE,RANDOM 104 mg/dL (70-105); SODIUM SERUM 139 mmol/L (136-145); TOTAL PROTEIN, SERUM 5.1 g/dL (6.0-8.3); UREA NITROGEN, BLOOD 14 mg/dL (7-18)
[2023-09-11 05:29] LABS: ALANINE AMINOTRANSFERASE < 6 U/L (12-78); POTASSIUM 2.9 mmol/L (3.5-5.1)
[2023-09-11] MEDS: POTASSIUM CHLORIDE 10% ELIXIR 20 MEQ/15 ML UDCUP PO PRN (06:28)
[2023-09-11] MEDS ORDERED: MAGNESIUM 2GM PREMIX 50ML 50 ML IV PRN (06:30)
[2023-09-11 07:18] LABS: PARTIAL THROMBOPLASTIN TIME > 139.0 SEC (26.3-35.5)
[2023-09-11] MEDS: TAMSULOSIN HCL 0.4 MG CAP.ER.24H PO ONE (11:56)
[2023-09-11] MEDS: KCL 20 MEQ ERTAB PO PRN (11:57)
[2023-09-11] MEDS: CYANOCOBALAMIN (VITAMIN B-12) 1,000 MCG TABLET PO SCH (14:38)
[2023-09-11] MEDS: FOLIC ACID 1 MG TABLET PO SCH (14:38)
[2023-09-11] MEDS: POTASSIUM CHLORIDE 20MEQ/100ML 100 ML IV PRN (16:17)
[2023-09-11] MEDS ORDERED: VANCOMYCIN PROTOCOL PER PHARMACY IV SCH (17:00)
[2023-09-11] MEDS: VANCOMYCIN 2GM/500 ML BAG 500 ML IV SCH (17:46)
[2023-09-11 18:26] LABS: MAGNESIUM 1.6 mg/dL (1.80-2.40)
[2023-09-11 18:28] LABS: POTASSIUM 2.8 mmol/L (3.5-5.1)
[2023-09-11] MEDS: HYDROXYZINE 25 MG TABLET PO SCH (21:44)
[2023-09-11] MEDS: ACETAMINOPHEN 325 MG TAB PO PRN (23:44)
[2023-09-12] VITALS (10 sets, daily range): BP systolic 110–137; BP diastolic 69–94; PULSE 66–92; RESP 16–18; TEMP 99.1; O2SAT 96–99
[2023-09-12] MEDS: VANCOMYCIN 1G/250ML KIT 250 ML IV SCH (05:00)
[2023-09-12 05:17] LABS: BASOPHILS % (AUTO) 1.1 % (0.0-5.0); EOSINOPHILS % (AUTO) 1.1 % (0.0-8.0); HEMATOCRIT 37.6 % (42-54); IMMATURE GRANULOCYTE ABSOLUTE 0.06 K/uL (0-1); LYMPHOCYTES # (AUTO) 0.6 K/uL (1.0-4.8); MEAN CORPUSCULAR HEMOGLOBIN 28.5 pg (27.0-33.0); MEAN CORPUSCULAR HGB CONC 31.1 g/dL (32.0-36.0); MEAN CORPUSCULAR VOLUME 91.5 fL (79-99); MONOCYTES % (AUTO) 10.7 % (3.0-13.0); NEUTROPHILS # (AUTO) 7.3 K/uL (1.8-7.7); NEUTROPHILS % (AUTO) 79.4 % (40.0-77.0); PLATELET COUNT (AUTO) 111 K/uL (130-400); RED BLOOD CELL COUNT(AUTO) 4.11 MIL/uL (4.50-6.20); RED CELL DISTRIBUTION WIDTH 14.8 % (11.0-15.5); WHITE BLOOD COUNT (AUTO) 9.2 K/uL (4.8-10.8)
[2023-09-12 05:41] LABS: ALBUMIN 1.9 g/dL (3.5-5.0); ASPARTATE AMINOTRANSFERASE 13 U/L (10-37); BILIRUBIN,TOTAL 0.6 mg/dL (0.2-1.0); CARBON DIOXIDE 26 mmol/L (21-32); CHLORIDE 107 mmol/L (101-111); CREATININE 0.7 mg/dL (0.5-1.5); GLOMERULAR FILTR. RATE CALC 94 mL/min (>90); GLUCOSE,RANDOM 99 mg/dL (70-105); POTASSIUM 4.5 mmol/L (3.5-5.1); SODIUM SERUM 138 mmol/L (136-145); TOTAL PROTEIN, SERUM 4.6 g/dL (6.0-8.3); UREA NITROGEN, BLOOD 11 mg/dL (7-18)
[2023-09-12 05:43] LABS: ALANINE AMINOTRANSFERASE < 6 U/L (12-78)
[2023-09-12] MEDS: TAMSULOSIN HCL 0.4 MG CAP.ER.24H PO SCH (09:18)
[2023-09-12] MEDS ORDERED: COMPOUND IV MISC 1 EACH IVSOLN MISC PRN (15:00)
[2023-09-12] MEDS: MEROPENEM 1 GM in 0.9%NACL 100ML 100 ML IVPB SCH (15:36)
[2023-09-12] MEDS: FUROSEMIDE 40MG VIAL IV SCH (19:05)
[2023-09-12] MEDS: HYDROXYZINE 25 MG TABLET PO PRN (20:40)
[2023-09-13] VITALS (7 sets, daily range): BP systolic 133–144; BP diastolic 55–94; PULSE 79–89; RESP 18–19; O2SAT 96–98
[2023-09-13 05:34] LABS: BASOPHILS # (AUTO) 0.08 K/uL (0.00-0.20); BASOPHILS % (AUTO) 1.1 % (0.0-5.0); EOSINOPHILS # (AUTO) 0.52 K/uL (0.00-0.70); EOSINOPHILS % (AUTO) 6.9 % (0.0-8.0); HEMATOCRIT 36.5 % (42-54); IMMATURE GRANULOCYTE ABSOLUTE 0.04 K/uL (0-1); LYMPHOCYTES # (AUTO) 0.8 K/uL (1.0-4.8); LYMPHOCYTES % (AUTO) 10.7 % (21.0-51.0); MEAN CORPUSCULAR HEMOGLOBIN 28.4 pg (27.0-33.0); MEAN CORPUSCULAR HGB CONC 32.3 g/dL (32.0-36.0); MONOCYTES # (AUTO) 0.5 K/uL (0.1-1.0); MONOCYTES % (AUTO) 6.9 % (3.0-13.0); NEUTROPHILS # (AUTO) 5.6 K/uL (1.8-7.7); NEUTROPHILS % (AUTO) 73.9 % (40.0-77.0); PLATELET COUNT (AUTO) 125 K/uL (130-400); RED BLOOD CELL COUNT(AUTO) 4.15 MIL/uL (4.50-6.20); RED CELL DISTRIBUTION WIDTH 14.7 % (11.0-15.5); WHITE BLOOD COUNT (AUTO) 7.6 K/uL (4.8-10.8)
[2023-09-13 05:54] LABS: ALBUMIN 2.1 g/dL (3.5-5.0); ASPARTATE AMINOTRANSFERASE 12 U/L (10-37); BILIRUBIN,TOTAL 0.6 mg/dL (0.2-1.0); CARBON DIOXIDE 27 mmol/L (21-32); CHLORIDE 106 mmol/L (101-111); CREATININE 0.7 mg/dL (0.5-1.5); GLOMERULAR FILTR. RATE CALC 94 mL/min (>90); GLUCOSE,RANDOM 89 mg/dL (70-105); SODIUM SERUM 139 mmol/L (136-145); UREA NITROGEN, BLOOD 10 mg/dL (7-18)
[2023-09-13 06:05] LABS: ALANINE AMINOTRANSFERASE < 6 U/L (12-78)
[2023-09-13] MEDS: VANCOMYCIN 1G/250ML KIT 250 ML IV SCH (10:18)
[2023-09-13 18:35] LABS: MAGNESIUM 1.6 mg/dL (1.80-2.40)
[2023-09-13] MEDS: DABIGATRAN 150MG CAPSULE PO SCH (20:09)
[2023-09-13] MEDS: FAMOTIDINE 20MG VIAL IV SCH (20:10)
[2023-09-14] VITALS (10 sets, daily range): BP systolic 139–148; BP diastolic 79–96; PULSE 76–92; RESP 18–22; O2SAT 96–98
[2023-09-14 06:05] LABS: BASOPHILS # (AUTO) 0.09 K/uL (0.00-0.20); BASOPHILS % (AUTO) 1.1 % (0.0-5.0); EOSINOPHILS # (AUTO) 0.54 K/uL (0.00-0.70); EOSINOPHILS % (AUTO) 6.4 % (0.0-8.0); HEMATOCRIT 38.3 % (42-54); IMMATURE GRANULOCYTE ABSOLUTE 0.03 K/uL (0-1); LYMPHOCYTES % (AUTO) 12.3 % (21.0-51.0); MEAN CORPUSCULAR HEMOGLOBIN 28.7 pg (27.0-33.0); MEAN CORPUSCULAR HGB CONC 32.4 g/dL (32.0-36.0); MEAN CORPUSCULAR VOLUME 88.7 fL (79-99); MONOCYTES # (AUTO) 0.8 K/uL (0.1-1.0); NEUTROPHILS % (AUTO) 70.8 % (40.0-77.0); PLATELET COUNT (AUTO) 138 K/uL (130-400); RED BLOOD CELL COUNT(AUTO) 4.32 MIL/uL (4.50-6.20); RED CELL DISTRIBUTION WIDTH 14.4 % (11.0-15.5); WHITE BLOOD COUNT (AUTO) 8.5 K/uL (4.8-10.8)
[2023-09-14 06:37] LABS: ASPARTATE AMINOTRANSFERASE 12 U/L (10-37); BILIRUBIN,TOTAL 0.6 mg/dL (0.2-1.0); CARBON DIOXIDE 26 mmol/L (21-32); CHLORIDE 105 mmol/L (101-111); CREATININE 0.6 mg/dL (0.5-1.5); GLOMERULAR FILTR. RATE CALC 98 mL/min (>90); GLUCOSE,RANDOM 92 mg/dL (70-105); POTASSIUM 3.5 mmol/L (3.5-5.1); SODIUM SERUM 138 mmol/L (136-145); TOTAL PROTEIN, SERUM 5.1 g/dL (6.0-8.3); UREA NITROGEN, BLOOD 7 mg/dL (7-18)
[2023-09-14 06:43] LABS: ALANINE AMINOTRANSFERASE < 6 U/L (12-78)
[2023-09-14 15:17] LABS: INR 1.62 (0.85-1.15); PROTHROMBIN TIME 18.2 SEC (9.6-11.6)
[2023-09-15] VITALS (9 sets, daily range): BP systolic 147–157; BP diastolic 90–107; PULSE 87–94; RESP 18–19; O2SAT 96–98
[2023-09-15 05:00] LABS: BASOPHILS # (AUTO) 0.09 K/uL (0.00-0.20); EOSINOPHILS # (AUTO) 0.65 K/uL (0.00-0.70); EOSINOPHILS % (AUTO) 7.4 % (0.0-8.0); HEMATOCRIT 36.8 % (42-54); IMMATURE GRANULOCYTE ABSOLUTE 0.06 K/uL (0-1); LYMPHOCYTES # (AUTO) 1.3 K/uL (1.0-4.8); LYMPHOCYTES % (AUTO) 14.3 % (21.0-51.0); MEAN CORPUSCULAR HEMOGLOBIN 28.2 pg (27.0-33.0); MEAN CORPUSCULAR HGB CONC 32.1 g/dL (32.0-36.0); MONOCYTES # (AUTO) 0.9 K/uL (0.1-1.0); MONOCYTES % (AUTO) 10.7 % (3.0-13.0); NEUTROPHILS # (AUTO) 5.8 K/uL (1.8-7.7); NEUTROPHILS % (AUTO) 65.9 % (40.0-77.0); PLATELET COUNT (AUTO) 133 K/uL (130-400); RED BLOOD CELL COUNT(AUTO) 4.18 MIL/uL (4.50-6.20); RED CELL DISTRIBUTION WIDTH 14.3 % (11.0-15.5); WHITE BLOOD COUNT (AUTO) 8.8 K/uL (4.8-10.8)
[2023-09-15 05:20] LABS: ALANINE AMINOTRANSFERASE < 6 U/L (12-78); ASPARTATE AMINOTRANSFERASE 8 U/L (10-37); BILIRUBIN,TOTAL 0.6 mg/dL (0.2-1.0); CARBON DIOXIDE 29 mmol/L (21-32); CHLORIDE 105 mmol/L (101-111); CREATININE 0.6 mg/dL (0.5-1.5); GLOMERULAR FILTR. RATE CALC 98 mL/min (>90); GLUCOSE,RANDOM 92 mg/dL (70-105); POTASSIUM 3.4 mmol/L (3.5-5.1); SODIUM SERUM 137 mmol/L (136-145); TOTAL PROTEIN, SERUM 5.1 g/dL (6.0-8.3); UREA NITROGEN, BLOOD 5 mg/dL (7-18)
[2023-09-15] MEDS: 0.9%NACL 10ML VIAL IV SCH (21:37)
[2023-09-16] VITALS (8 sets, daily range): BP systolic 150–161; BP diastolic 90–109; PULSE 85–97; RESP 17–20; O2SAT 95
[2023-09-16] MEDS: HYDRALAZINE 20MG/ML VIAL IV PRN (03:56)
[2023-09-16 09:12] LABS: CARBON DIOXIDE 28 mmol/L (21-32); CHLORIDE 103 mmol/L (101-111); CREATININE 0.7 mg/dL (0.5-1.5); GLOMERULAR FILTR. RATE CALC 94 mL/min (>90); GLUCOSE,RANDOM 122 mg/dL (70-105); POTASSIUM 3.2 mmol/L (3.5-5.1); SODIUM SERUM 135 mmol/L (136-145); UREA NITROGEN, BLOOD 6 mg/dL (7-18)
[2023-09-16 09:16] LABS: ALBUMIN 2.1 g/dL (3.5-5.0); ASPARTATE AMINOTRANSFERASE 10 U/L (10-37); BILIRUBIN,TOTAL 0.7 mg/dL (0.2-1.0); TOTAL PROTEIN, SERUM 5.6 g/dL (6.0-8.3)
[2023-09-16 09:18] LABS: ALANINE AMINOTRANSFERASE < 6 U/L (12-78)
== END 2023-09-16 19:30 | disposition home or self-care (01) | DRG 871 ==
LOC: EDH 12:31 → EDHIP 15:12 → 4DH 16:19
PROVIDERS: ADMIT Internal Medicine; ATTEND Internal Medicine
DX: A41.50 Gram-negative sepsis, unspecified (principal); E43 Unspecified severe protein-calorie malnutrition; G82.50 Quadriplegia, unspecified; N13.6 Pyonephrosis; G82.20 Paraplegia, unspecified; Z16.24 Resistance to multiple antibiotics; I82.413 Acute embolism and thrombosis of femoral vein, bilateral; E86.0 Dehydration; E83.42 Hypomagnesemia; E87.6 Hypokalemia; N40.0 Benign prostatic hyperplasia without lower urinary tract symptoms; I48.91 Unspecified atrial fibrillation; B96.20 Unspecified Escherichia coli [E. coli] as the cause of diseases classified elsewhere; E66.01 Morbid (severe) obesity due to excess calories; I10 Essential (primary) hypertension; N20.0 Calculus of kidney; Z82.49 Family history of ischemic heart disease and other diseases of the circulatory system; Z86.718 Personal history of other venous thrombosis and embolism; Z79.01 Long term (current) use of anticoagulants; Z87.440 Personal history of urinary (tract) infections; Z88.0 Allergy status to penicillin; Z91.041 Radiographic dye allergy status; Z96.641 Presence of right artificial hip joint; Z98.1 Arthrodesis status; Z99.3 Dependence on wheelchair; Z68.32 Body mass index [BMI] 32.0-32.9, adult
CPT/HCPCS: 36415; 36600; 71045; 74176; 76770; 78708; 80053; 80202; 80305; 81001; 82550; 82803; 83036; 83605; 83735; 84132; 84145; 84443; 84484; 85025; 85610; 85730; 86140; 86850; 86900; 86901; 87040; 87077; 87088; 87186; 93005; 93306; 93970; 94640; 94664; A9562; C1894; G0378; J0360; J0692; J0696; J1644; J1940; J2060; J2185; J3370; J3475; J3480; J3490; C1750

== ENCOUNTER → 2023-10-15 | Outpatient (CLI) | payer OTHER ==
[~2023-10-15] MED LIST changes: -CEFD300C3 PO; -ENOX100D4 SQ; -IBUP-1493 PO; -METH-662 PO; +POTA-364 PO; -POTA-79 PO
== END | disposition home or self-care (01) ==
LOC: RAH 10-14 16:29
PROVIDERS: ATTEND Urology
DX: N20.0 Calculus of kidney (principal)
CPT/HCPCS: 74018; 76100

== ENCOUNTER → 2023-12-23 | Outpatient (CLI) | payer OTHER | END | disposition home or self-care (01) | LOC: RAH 12:32 | PROVIDERS: ATTEND Urology | DX: N20.0 Calculus of kidney (principal); M47.815 Spondylosis without myelopathy or radiculopathy, thoracolumbar region; Z96.641 Presence of right artificial hip joint | CPT/HCPCS: 74018; 76100 ==

== ENCOUNTER → 2023-12-30 | Outpatient (CLI) | payer OTHER ==
[~2023-12-30] MED LIST changes: +LIDOCAINE HCL 4% LTA SOL 4 ML VIAL TP ONE
== END | disposition home or self-care (01) ==
LOC: WHH 09:42
PROVIDERS: ATTEND Nurse Practitioner Family
DX: S81.802A Unspecified open wound, left lower leg, initial encounter (principal); I10 Essential (primary) hypertension; L84 Corns and callosities; I89.0 Lymphedema, not elsewhere classified; E55.9 Vitamin D deficiency, unspecified; I48.91 Unspecified atrial fibrillation; G82.21 Paraplegia, complete; N40.0 Benign prostatic hyperplasia without lower urinary tract symptoms; Z96.649 Presence of unspecified artificial hip joint; Z87.891 Personal history of nicotine dependence; Z90.49 Acquired absence of other specified parts of digestive tract; X58.XXXA Exposure to other specified factors, initial encounter; Y93.89 Activity, other specified; Y92.89 Other specified places as the place of occurrence of the external cause; Y99.8 Other external cause status
CPT/HCPCS: 87070; G0463; A4450

== ENCOUNTER → 2024-01-27 | Outpatient (CLI) | payer OTHER | END | disposition home or self-care (01) | LOC: WHH 07:56 | PROVIDERS: ATTEND Family Medicine | DX: S81.802D Unspecified open wound, left lower leg, subsequent encounter (principal); I10 Essential (primary) hypertension; L84 Corns and callosities; I89.0 Lymphedema, not elsewhere classified; E55.9 Vitamin D deficiency, unspecified; I48.91 Unspecified atrial fibrillation; G82.21 Paraplegia, complete; N40.0 Benign prostatic hyperplasia without lower urinary tract symptoms; Z96.649 Presence of unspecified artificial hip joint; Z87.891 Personal history of nicotine dependence; Z90.49 Acquired absence of other specified parts of digestive tract; X58.XXXD Exposure to other specified factors, subsequent encounter | CPT/HCPCS: 11042 ==